=== PATIENT | female | born 1990 | race Caucasian/White ===

== ENCOUNTER 2024-01-22 12:30 | Outpatient (OUT) | payer MEDICARE, MEDICAID, SELFPAY ==
--- NOTE | 2024-01-22 13:37 | ECG_ITS ---
The [facility] Test Date: 2024-01-22 Pat Name: BRY BOWEN Department: Room: - Gender: Female [employer]: : 1990 Requested By: Order Number: [id number] Reading MD: ABDIRAHMAN DINERO Measurements Intervals [place] Rate: 49 P: 5 PA: 127 QRS: 76 QRSD: 94 T: 55 QT: 468 QTc: 424 Interpretive Statements SINUS BRADYCARDIA WITH SINUS ARRHYTHMIA POSSIBLE RIGHT VENTRICULAR CONDUCTION DELAY [RSR (QR) IN V1/V2] No previous ECG available for comparison Electronically Signed On 01-22-2024 23:07:46 EDT by ABDIRAHMAN DINERO
[2024-01-22 14:27] LABS: Hematocrit 38.2 % (36.0-48.0); Hemoglobin 12.4 g/dL (12.0-16.0); Mean Corpuscular HGB Conc 32.5 g/dL (29.9-35.2); Mean Corpuscular Hemoglobin 28.8 pg (26.7-34.0); Mean Corpuscular Volume 88.8 fL (81.0-99.0); Mean Platelet Volume 11.7 fL (9.5-13.5); Platelet Count 274 10^3/uL (150-450); White Blood Count 5.6 10^3/uL (4.0-11.0)
[2024-01-22 14:32] LABS: Anion Gap 11.1; BUN Creatinine Ratio 17.1; Calcium 9.2 mg/dL (8.5-10.1); Chloride 102 mmol/L (98-107); Estimated GFR (African America >60 (>=60); Estimated GFR (Non-African Ame >60 (>=60); Glucose 91 mg/dL (74-106); Potassium 4.1 mmol/L (3.5-5.1); Sodium 139 mmol/L (136-145)
[2024-01-22 14:38] LABS: INR 1.06; Partial Thromboplastin Time 29.3 sec (22.3-36.2); Prothrombin Time 11.2 sec (9.0-11.6)
[2024-01-22 15:41] LABS: Basophils Abs Manual 0.11 10^3/uL (0.00-0.10); Eosinophils Absolute Manual 0.22 10^3/uL (0.00-0.70); Lymphocytes Absolute Manual 2.35 10^3/uL (1.20-3.80); Monocytes Absolute Manual 0.33 10^3/uL (0.30-0.80); Segmented Neut Absolute Manual 2.57 10^3/uL (1.4-6.5)
[2024-01-22 16:04] LABS: Ovalocytes 1+
== END 2024-01-22 12:31 | disposition home or self-care (01) ==
PROVIDERS: PCP Family Medicine; Visit Provider Urology
DX: Z01.812 Encounter for preprocedural laboratory examination (principal); N28.89 Other specified disorders of kidney and ureter; Z87.820 Personal history of traumatic brain injury; G40.909 Epilepsy, unspecified, not intractable, without status epilepticus; G43.909 Migraine, unspecified, not intractable, without status migrainosus
CPT/HCPCS: 36415; 80048; 85007; 85027; 85610; 85730; 93005

== ENCOUNTER 2024-01-22 12:42 | Outpatient (OUT) | payer MEDICARE, MEDICAID, SELFPAY ==
--- NOTE | 2024-01-22 12:46 | XR_ITS ---
The [address] [address] Patient Name: BRY BOWEN MRN: [id number] date: 1990 Sex: F Assigned Patient Location: [place] Current Patient Location: [facility] Accession/Order Number: [id number] Exam Date: 01/22/2024 12:55 Report Date: 01/22/2024 14:25 At the request of: MADHAVI MONTES DE OCA Procedure: XR IVP w KUB EXAMINATION: XR IVP w KUB HISTORY: Ureterocele, Bladder Mass COMPARISON: No relevant comparison available. TECHNIQUE: After obtaining patient consent a preventive medicine officer image was obtained followed by injection of 100cc of Omnipaque 300 IV contrast. Immediate nephrographic images were obtained. Corticomedullary and urographic phase images were obtained at 5, 10, 15 and 20 minutes. 15 minute oblique images were also obtained. FINDINGS: KIDNEY/URETER - RIGHT: No visible calcifications. KIDNEY/URETER - LEFT: No visible calcifications. PELVIS: No visible ureteral calcifications. Any visible calcifications favor phleboliths. NEPHROGRAPHIC PHASE: Normal, symmetric size, contour, and orientation. Normal and symmetric time of contrast uptake. CORTICOMEDULLARY: No mass or dilatation. Mild breast appearance of the renal papilla suggestive of benign renal tubular ectasia UROGRAPHIC PHASE: Normal caliber, course, and number of ureters. BLADDER: Normal size and contour. BOWEL: No abnormal dilation or deviation. BONES: No acute abnormality. OTHER: Right-sided catheter, ventriculoperitoneal shunt favored, the tip terminates in the left lateral pelvis. IVC filter. XR/XR IVP w KUB IMPRESSION: No acute abnormality Electronically authenticated by: KATELYN VEGAS Date: 01/22/2024 14:25
== END 2024-01-22 12:43 | disposition home or self-care (01) ==
PROVIDERS: PCP Family Medicine; Visit Provider Urology
DX: Z01.812 Encounter for preprocedural laboratory examination (principal); Z01.810 Encounter for preprocedural cardiovascular examination; N28.89 Other specified disorders of kidney and ureter; Z87.820 Personal history of traumatic brain injury; G40.909 Epilepsy, unspecified, not intractable, without status epilepticus; G43.909 Migraine, unspecified, not intractable, without status migrainosus; D49.4 Neoplasm of unspecified behavior of bladder
CPT/HCPCS: 36415; 74400; 80048; 85007; 85027; 85610; 85730; 93005; Q9967

== ENCOUNTER 2024-01-24 08:59 | Day surgery (SDC) | payer MEDICARE, MEDICAID, SELFPAY ==
[2024-01-22 14:03] VITALS: BP 106/57; PULSE 50; TEMP 36.4; O2SAT 99; BMI 21.4
[2024-01-24] VITALS (8 sets, daily range): BP systolic 92–114; BP diastolic 64–76; PULSE 49–67; TEMP 36.1; O2SAT 98–100; BMI 22.9
--- NOTE | 2024-01-24 | FL_ITS ---
[address] [address] Patient Name: BRY BOWEN MRN: [id number] date: 1990 Sex: F [facility] Current Patient Location: Accession/Order Number: [id number] Exam Date: 01/24/2024 11:20 Report Date: 01/28/2024 08:21 At the request of: MADHAVI MONTES DE OCA Procedure: FL fluoroscopy <1hr NON-READ EXAM: FL fluoroscopy <1hr NON-READ HISTORY: TECHNIQUE: FINDINGS: Please see Operative Report. Electronically authenticated by: RADIOLOGIST NO Date: 01/28/2024 08:21
--- OUTSIDE RECORDS SUMMARY | 2024-01-24 09:03 | XMS_ITS | CCD ---
Author Organization [facility] Care Team Providers Care Polysilicon Preparation Worker Name Role Phone Joseph Armani Primary Care Provider [phone] JOSEPH ARMANI Referring Unavailable ARMANI RUIZ Primary Care Unavailable Naldo GUERRERO, Denae Redding Primary Care Provider [place]aras WORKER'S 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 CLAIMS EXAMINER, Yanelis R Unavailable [phone] Angel WORKER'S 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 CLAIMS EXAMINER, Gay Unavailable Chely TUBING MACHINE OPERATOR-Gloria VASQUEZ Primary Care Provider [phone] MD Heraclio Porter Attending Provider [phone] MD Denae Hitchcock Primary Care Provider [phone] GAY GANDHI Attending Unavailable HERACLIO PORTER Attending Unavailable GAY GANDHI Referring Unavailable HERACLIO PORTER Referring Unavailable HERACLIO PORTER Attending Unavailable HERACLIO PORTER Referring Unavailable HERACLIO PORTER Attending Unavailable HERACLIO PORTER Referring Unavailable Alon MONTES DE OCA Attending Unavailable DENAE HITCHCOCK Primary Care Physician DILEEP RICHTER Attending Unavailable GLORIA YANEZ Referring Unavailable GLORIA YANEZ Primary Care Unavailable Heraclio Porter Attending Unavailable Heraclio Porter Admitting Unavailable Denae Hitchcock Primary Care Unavailable Medications Current Medications Medication Drug Class(es) Dates Sig (Normalized) Sig (Original) ibuprofen 800 mg oral tablet (2 sources) Nonsteroidal Anti-inflammatory Drug Start: 11-09-2023 take 800 mg by mouth every eight hours Ibuprofen Active 800 MG PO Every 8 hours November 09, 2023 12:00am ibuprofen 200 mg capsule PRN for 30 days 0 Active levETIRAcetam 500 mg oral tablet (7 sources) Start: 01-17-2023 End: 01-12-2024 take 1 mg by mouth twice daily Keppra 500 mg Tab mg tab(s), Oral, BID, Refills(s) 0 Start Date: 12/19/23 Status: Ordered take 1 tablet by mouth twice elizabeth ly levetiracetam (KEPPRA) 1000 MG tablet Take 1,000 mg by mouth 2 times daily. 0 Active cavmohot-jqsi-UB-calcium &mins (THERAGRAN-M) 9 mg iron-400 mcg tablet (1 source) owyhxsdf-pssk-PO -calcium &mins (THERAGRAN-M) 9 mg iron-400 mcg tablet Take 1 tablet by mouth in the morning. 0 Active nitrofurantoin, macrocrystals 25 mg / nitrofurantoin, monohydrate 75 mg oral capsule (1 source) Nitrofuran Antibacterial Sta rt: 4 End : 4 take 1 capsule by mouth once daily Macrobid 100 mg Cap 100 mg = 1 cap(s), Oral, Daily, X 60 day(s), # 60 cap(s), Refills(s) 0, Pharmacy: [facility] #[id number], 170, cm, 12/19/23 10:38:00 EDT, Height/Length Dosing, 67.5, kg, 12/19/23 10:38:00 EDT, Weight Dosing Start Date: 01/01/24 Stop Date: 03/01/24 Status: Ordered omega 7-gkr-tgf-fish oil (Fish OiL) 300-1,000 mg capsule (1 source) omega 3-dha-epa- fish oil (Fish OiL) 300-1,000 mg capsule 1 capsule. 0 Active Completed/Discontinued Medications Medication Drug Class(es) Dates Sig (Normalized) Sig (Original) ciprofloxacin 500 mg oral tablet (1 source) Quinolone Antimicrobial Start: 12-21-2023 take 1 tablet by mouth once daily Cipro 500 mg Tab 500 mg = 1 tab(s), Oral, Daily, Take 1 tablet the day before the procedure and 1 tablet after the procedure, # 2 tab(s), Refills(s) 0, Pharmacy: [facility] #[id number], 170, cm, 12/19/23 10:38:00 EDT, Height/Length Dosing, 67.5, kg, 12/19/23 10:38:00 EDT, Weight Dosing Start Date: 12/21/23 Status: Ordered Problems Active Problems Problem Classification Problem Date Documented Date Episodic/Chronic Epilepsy; convulsions (5 sources) Partial epilepsy with impairment of consciousness; Translations: [Localization-related (focal) (partial) symptomatic epilepsy and epileptic syndromes with complex partial seizures, not intractable, without status epilepticus] Onset: 1 07-31-2023 Chronic Epilepsy; convulsions (6 sources) Neurological finding; Translations: [Unspecified convulsions] Onset: 3 07-31-2023 Episodic Headache; including migraine (4 sources) Migraine without aura, not refractory ; Translations: [Migraine without aura, not intractable, without status migrainosus] Onset: 3 07-31-2023 Chronic Headache; including migraine (3 sources) Posttraumatic headache; Translations: [Post-traumatic headache, unspecified, not intractable] Onset: 4 07-31-2023 Episodic Intracranial injury (5 sources) History of traumatic brain injury; Translations: [Personal history of traumatic brain injury] Onset: 1 12-22-2020 Episodic Menstrual disorders (5 sources) Disorder of menstruation; Translations: [Irregular menstruation, unspecified] Onset: 4 07-31-2023 Chronic Other endocrine disorders (2 sources) Disorder of endocrine system 12-13-2023 Episodic Other endocrine disorders (2 sources) Endocrine finding 12-13-2023 Episodic Other nervous system disorders (1 source) Device in situ; Translations: [Presence of cerebrospinal fluid drainage device] Onset: 4 07-31-2023 Chronic Other nervous system disorders (1 source) Ventriculoperitoneal shunt in situ; Translations: [Presence of cerebrospinal fluid drainage device] Onset: 4 07-31-2023 Chronic Other screening for suspected conditions (not mental disorders or infectious disease) (2 sources) Endometrium thickened 12-13-2023 Chronic Other screening for suspected conditions (not mental disorders or infectious disease) (3 sources) Patient encounter status; Translations: [Encounter for screening for lipoid disorders] Onset: 4 Episodic Residual codes; unclassified (4 sources) Memory impairment; Translations: [Other amnesia] Onset: 1 12-22-2020 Episodic Residual codes; unclassified (2 sources) Device in situ 12-13-2023 Episodic Residual codes; unclassified (2 sources) Ventriculoperitoneal shunt in situ 12-13-2023 Episodic Past or Other Problems Problem Classification Problem Date Documented Da te Episodic/Chronic Mood disorders (1 source) Mood disorders Onset: 05-09-2022 05-09-2022 Results Test Name Value Interpretation Reference Range Facility HCG ( test) Amador d Ql (U)Ordered By: Derek Quinn on 11-09-2023 HCG ( test) Ql (U) Negative [facility] HCG,Urineon 11-09-2023 Beta HCG ( test) Ql (U) Negative Normal [facility] Comment on above: Result Comment: PERF ORMED BY: [place] [address] PATHOLOGIST AMBULATORY CARE COORDINATOR JOSE WALDROP M.D. Performed By: #### U HCG #### [place] [address] [place] Fidencio 11-09-2023 L Specimen: [id number] Received: 11/09/23 Status: BRENNAN Hernandez Num: [id number] Spec Type: Surgical Subm Dr: Heraclio Porter MD-[facility] Tissues: A Endometrium - Curettings (EMC) Procedures: HE/2, Gross/Micro L4 Age/ Patient Sex Location Account Attending Physician Bry Cummings 33/F [place] [id number] Heraclio Porter MD-[facility] SPEC NUM: [id number] RECD: 11/09/23 STATUS: BRENNAN HERNANDEZ NUM: [id number] VERNON: 11/09/23- SUBM DR: Heraclio Porter MD-[facility] ENTERED: 11/09/23 [facility] DR: SPEC TYPE: Surgical DEPT: S ORDERED: HE/2, Gross/Micro L4 ORDERED: HE/2, Gross/Micro L4 Pathological Diagnosis Endometrial curettings: -Slightly unevenly developed secretory endometrium of the at least early phase type, but still with occasional rare mitosis identified in at least 4 glands per underlying persistent desynchronized proliferative activity, and the dysfunctional type uterine bleeding, otherwise without obvious hyperplasia or atypia observed -Incidentally sampled myometrial portion in 2 strips with few admixed thickened walled vessels, suggesting possibly sampled angioleiomyoma versus focal angiodysplasia not unusually also might be observed in any given reproductive age patient with larger uterus of note Gross Description Received in formalin, labeled with the patient's name, date of and endometrial curettings are multiple fragments of hawkins-pink tissue and clotted blood on a Telfa pad measuring in aggregate 2.5 x 2.0 x 0.3 cm, entirely submitted in A1. Clinical history: Menorrhagia, thickened endometrium Specimen: [id number] Received: 11/09/23 Status: BRENNAN Hernandez Num: [id number] Spec Type: Surgical Subm Dr: Heraclio Porter MD-[facility] Tissues: A Endometrium - Curettings (EMC) Procedures: HE/2, Gross/Micro L4 Patient: Bry Cummings [id number] (Continued) Specimen: [id number] Received: 11/09/23 (Continued) Signed (signatur e on file) Marylin Wladron MD 11/12/23 2034 Specimen: [id number] Received: 11/09/23 Status: BRENNAN Hernandez Num: [id number] Spec Type: Surgical Subm Dr: Heraclio Porter MD-CASEY Tissues: A Endometrium - Curettings (EMC) Procedures: HE/2, Gross/Micro L4 Patient: Bry Cummings [id number] (Continued) Specimen: [id number] Received: 11/09/23 (Continued) CPT Codes 83150 Specimen: [id number] Received: 11/09/23 Status: BRENNAN Hernandez Num: [id number] Spec Type: Surgical Subm Dr: Heraclio Porter MD-[facility] Tissues: A Endometrium - Curettings (EMC) Procedures: HE/2, Gross/Micro L4 Patient: Bry Cummings [id number] (Continued) Signed (signatur e on file) Marylin Waldron MD 11/12/232033 Normal [facility] US RENAL COMPLETEon 10-18-19 US RENAL COMPLETE FINDINGS: Right kidney 11.9 x 5.3 x 4.3 cm Left kidney 12.0 x 4.4 x 6.2 cm Pre-void bladder 278 cc Post void bladder 21 Right kidney and collecting system: Normal. Left kidney and collecting system: Normal cortical volume. 1.5 x 2.7 cm mid pole exophytic cyst. No echogenic stone formation or evidence of obstruction. No bladder stone or focal wall thickening. 1.0 x 1.5 cm septation (cystic appearance) posterior bladder wall near the base. IMPRESSION: 1. No significant stone formation or evidence of urinary tract obstruction 2. Bladder findings, likely benign etiology. TRANSCRIBED BY: ELECTRONICALLY SIGNED BY: John Aburto MD Normal Not Available HCG ( test) Ql (U)o n 07-31-2023 Interpretation and review of laboratory results Normal [facility] Preg Test, Ur Negative [facility] Comp Metabolic Profon 2020 (cont.) Normal [facility] Comment on above: Result Comment: Aver age GFR for 30-39 years old: 107 mL/min/1.73sq m Chronic Kidney Disease: <60 mL/min/1.73sq m Kidney failure: <15 mL/min/1.73sq m eGFR calculated using average adult body mass. Additional eGFR calculator available at: http://www.Meiyou/multiple_crcl_2011.htm Performed By: #### C DP, CP, LIPR, FT4, TSH #### [facility] [address] [place] [address] Dump Grader: Robby Oconnor MD Albumin [Mass/Vol] 4.4 g/dL Normal 3.5-5.2 [facility] Comment on above: Performed By: #### C DP, CP, LIPR, FT4, TSH #### [facility] [address] [place] [address] Dump Grader: Robby Oconnor MD Albumin/Glob Ratio 1.1 Normal 1.0-2.5 [facility] Comment on above: Performed By: #### C DP, CP, LIPR, FT4, TSH #### [facility] [address] [place] [address] Dump Grader: Robby Oconnor MD Alkaline Phos 70 U/L Normal 35-104 [facility] Comment on above: Performed By: #### C DP, CP, LIPR, FT4, TSH #### [address] [address] Dump Grader: Robby Oconnor MD ALT [Catalytic activity/Vol] 10 U/L Normal 5-33 [facility] Comment on above: Performed By: #### C DP, CP, LIPR, FT4, TSH #### [address] [address] Dump Grader: Robby Oconnor MD Anion gap [Moles/Vol] 12 mmol/L Normal 9-17 [facility] Comment on above: Performed By: #### C DP, CP, LIPR, FT4, TSH #### [address] [address] Dump Grader: Robby Oconnor MD AST [Catalytic activity/Vol] 14 U/L Normal <32 [facility] Comment on above: Performed By: #### C DP, CP, LIPR, FT4, TSH #### [address] [address] Dump Grader: Robby Oconnor MD Bilirubin [Mass/Vol] 0.33 mg/dL Normal 0.3-1.[address] [facility] Comment on above: Performed By: #### C DP, CP, LIPR, FT4, TSH #### [address] [address] Dump Grader: Robby Oconnor MD Calcium [Mass/Vol] 9.1 mg/dL Normal 8.6-10.4 [facility] Comment on above: Performed By: #### C DP, CP, LIPR, FT4, TSH #### [address] [address] Dump Grader: Robby Oconnor MD Chloride [Moles/Vol] 103 mmol/L Normal 98-[address] [facility] Comment on above: Performed By: #### C DP, CP, LIPR, FT4, TSH #### [address] [address] Dump Grader: Robby Oconnor MD CO2 [Moles/Vol] 25 mmol/L Normal 20-31 [facility] Comment on above: Performed By: #### C DP, CP, LIPR, FT4, TSH #### [address] [address] Dump Grader: Robby Oconnor MD Creatinine [Mass/Vol] 0.54 mg/dL Normal 0.50-0.90 [facility] Comment on above: Performed By: #### C DP, CP, LIPR, FT4, TSH #### [address] [address] Dump Grader: Robby Oconnor MD GFR, Amer >60 Normal >60 [facility] Comment on above: Performed By: #### C DP, CP, LIPR, FT4, TSH #### [address] [address] Dump Grader: Robby Oconnor MD GFR,non Amer >60 Normal >[address] [facility] Comment on above: Performed By: #### C DP, CP, LIPR, FT4, TSH #### [address] [address] Dump Grader: Robby Oconnor MD Glucose [Mass/Vol] 76 mg/dL Normal 70-99 [facility] Comment on above: Performed By: #### C DP, CP, LIPR, FT4, TSH #### [address] [address] Dump Grader: Robby Oconnor MD Potassium [Moles/Vol] 4.0 mmol/L Normal 3.7-5.3 [facility] Comment on above: Performed By: #### C DP, CP, LIPR, FT4, TSH #### [address] [address] Dump Grader: Robby Oconnor MD Protein [Mass/Vol] 8.5 g/dL High 6.4-8.3 [facility] Comment on above: Performed By: #### C DP, CP, LIPR, FT4, TSH #### [address] [address] Dump Grader: Robby Oconnor MD Sodium [Moles/Vol] 140 mmol/L Normal 135-144 [facility] Comment on above: Performed By: #### C DP, CP, LIPR, FT4, TSH #### [facility] [address] [place] [address] Dump Grader: Robby Oconnor MD Urea nitrogen [Mass/Vol] 15 mg/dL Normal 6-20 [facility] Comment on above: Performed By: #### C DP, CP, LIPR, FT4, TSH #### [facility] [address] [place] [address] Dump Grader: Robby Oconnor MD Lipid Profileon 12-23-2020 Cholesterol [Mass/Vol] 133 mg/dL Normal <[address] [facility] Comment on above: Result Comment: Cholesterol Guidelines: <200 Desirable 200-240 Borderline >240 Undesirable Performed By: #### C DP, CP, LIPR, FT4, TSH #### [address] [address] Dump Grader: Robby Oconnor MD Cholesterol in HDL [Mass/Vol] 52 mg/dL Normal >40 [facility] Comment on above: Result Comment: HDL Guidelines: <40 Undesirable 40-59 Borderline >59 Desirable Performed By: #### C DP, CP, LIPR, FT4, TSH #### [address] [address] Dump Grader: Robby Oconnor MD Cholesterol in LDL [Mass/Vol] 61 mg/dL Normal 0-130 [facility] Comment on above: Result Comment: LDL Guidelines: <100 Desirable 100-129 Near to/above Desirable 130-159 Borderline >159 Undesirable Direct (measured) LDL and calculated LDL are not interchangeable tests. Performed By: #### C DP, CP, LIPR, FT4, TSH #### [address] [address] Dump Grader: Robby Oconnor MD Cholesterol.total/Choles terol in HDL [Mass ratio] 2.6 {ratio} Normal <5 [facility] Comment on above: Performed By: #### C DP, CP, LIPR, FT4, TSH #### [address] [address] Dump Grader: Robby Oconnor MD Triglyceride [Mass/Vol] 102 mg/dL Normal <150 [facility] Comment on above: Result Comment: Triglyceride Guidelines: <150 Desirable 150-199 Borderline 200-499 High >499 Very high Based on AHA Guidelines for fasting triglyceride, March 2012. Performed By: #### C DP, CP, LIPR, FT4, TSH #### [address] [address] Dump Grader: Robby Oconnor MD Thyroid Stim. Horm.on 2020 TSH Qn 4.99 m[IU]/L Normal 0.30-5.00 [facility] Comment on above: Performed By: #### C DP, CP, LIPR, FT4, TSH #### [address] [address] Dump Grader: Robby Oconnor MD Thyroxine, Freeon 12-23-2020 Thyroxine, Free 0.97 ng/dL Normal 0.93-1.70 [facility] Comment on above: Performed By: #### C DP, CP, LIPR, FT4, TSH #### [address] [address] Dump Grader: Robby Oconnor MD CBC With Auto DifferentialOr dered By: Armani Ruiz on 12-22-2020 [employer] Eos # 0.16 [employer] [facility] Work Phone: Absolute Immature Granulocyte <0.03 [facility] Work Phone: Absolute Lymph # 2.82 [employer] [facility] Work Phone: Absolute Stonewall # 0.70 [employer] [facility] Work Phone: Basophils (Bld) [#/Vol] 0.05 10*3/uL [facility] Work Phone: Basophils/100 WBC (Bld) 1 % 0 - 2 % [facility] Phone: Differential Type NOT REPORTED [employer] Phone: Eosinophils/100 WBC (Bld) 3 % 1 - 4 % [employer] Phone: Hematocrit (Bld) [Volume fraction] 41.0 % 36.3 - 47.1 % [employer] Phone: Hemoglobin.gastrointesti nal spec 1 Ql (Stl) 13.1 g/dL 11.9 - 15.1 g/dL [employer] Phone: Immature granulocytes/100 WBC (Bld) 0 % 0 [employer] Phone: Interpretation and review of laboratory results Abnormal [employer] Phone: Lymphocytes/100 WBC (Bld) 51 % High 24 - 43 % [employer] Phone: MCH (RBC) [Entitic mass] 31.1 pg 25. 2 - 33.5 pg [employer] Phone: MCHC (RBC) [Mass/Vol] 32.0 g/dL 28.4 - 34.8 g/dL [employer] Phone: MCV (RBC) [Entitic vol] 97.4 fL 82.6 - 102.9 fL [employer] Phone: Monocytes/100 WBC (Bld) 13 % High 3 - 12 % M [email or web address] Work Phone: NRBC Automated 0.0 0.0 per 100 WBC [employer] Phone: Platelet distribution width (Bld) [Ratio] 13.4 % 11.8 - 14.4 % [employer] Phone: Platelet Estimate NOT REPORTED [employer] Phone: Platelet mean volume (Bld) [Entitic vol] 12.8 fL 8.1 - 13.5 fL [employer] Phone: Platelets (Bld) [#/Vol] 243 10*3/uL [employer] Phone: RBC (Bld) [#/Vol] 4.21 10*6/uL 3.95 - 5.1 1 m/uL [employer] Phone: RBC (Bld) [#/Vol] NOT REPORTED [employer] Phone: Segmented neutrophils/100 WBC (Bld) 32 % Low 36 - 65 % [employer] Phone: Segs Absolute 1.73 [facility] Work Phone: WBC (Bld) [#/Vol] 5.5 10*3/uL [employer] Phone: WBC (Bld) [#/Vol] NOT REPORTED [employer] Phone: [employer] Phone: CBC with Diffon 12-22-2020 Abs. Basophil 0.05 k/uL Normal 0.00-0.20 [facility] Comment on above: Performed By: #### C DP, CP, LIPR, FT4, TSH #### [employer] [facility] [place] [address] Dump Grader: Robby Oconnor MD Abs.Imm.Granulocyte <0.03 Normal 0.00-0.30 [facility] Comment on above: Performed By: #### C DP, CP, LIPR, FT4, TSH #### [place] [address] Dump Grader: Robby Oconnor MD Abs.Neutrophil (Seg) 1.73 k/uL Normal 1.50-8.[address] [facility] Comment on above: Performed By: #### C DP, CP, LIPR, FT4, TSH #### [place] [address] Dump Grader: Robby Oconnor MD Basophils/100 WBC (Bld) 1 % Normal 0-2 [facility] Comment on above: Performed By: #### C DP, CP, LIPR, FT4, TSH #### [place] [address] Dump Grader: Robby Oconnor MD Eosinophils (Bld) [#/Vol] 0.16 10*3/uL Normal 0.00-0.44 [facility] Comment on above: Performed By: #### C DP, CP, LIPR, FT4, TSH #### [address] [address] Dump Grader: Robby Oconnor MD Eosinophils/100 WBC (Bld) 3 % Normal 1-4 [facility] Comment on above: Performed By: #### C DP, CP, LIPR, FT4, TSH #### [place] [address] Dump Grader: Robby Oconnor MD Erythrocyte distribution width (RBC) [Ratio] 13.4 % Normal 11.8-14.4 [facility] Comment on above: Performed By: #### C DP, CP, LIPR, FT4, TSH #### [place] [address] Dump Grader: Robby Oconnor MD Hematocrit (Bld) [Volume fraction] 41.0 % Normal 36.3-47.1 [facility] Comment on above: Performed By: #### C DP, CP, LIPR, FT4, TSH #### [facility] [address] [place] [address] Dump Grader: Robby Oconnor MD Hemoglobin (Bld) [Mass/Vol] 13.1 g/dL Normal 11.9-15.1 [facility] Comment on above: Performed By: #### C DP, CP, LIPR, FT4, TSH #### [facility] [address] [place] [address] Dump Grader: Robby Oconnor MD Immature granulocytes/100 WBC (Bld) 0 % Normal 0 [facility] Comment on above: Performed By: #### C DP, CP, LIPR, FT4, TSH #### [place] [address] Dump Grader: Robby Oconnor MD Lymphocytes (Bld) [#/Vol] 2.82 10*3/uL Normal 1.10-3.70 [facility] Comment on above: Performed By: #### C DP, CP, LIPR, FT4, TSH #### [address] [address] Dump Grader: Robby Oconnor MD Lymphocytes/100 WBC (Bld) 51 % High 24-43 [facility] Comment on above: Performed By: #### C DP, CP, LIPR, FT4, TSH #### [facility] [address] [place] [address] Dump Grader: Robby Oconnor MD MCH (RBC) [Entitic mass] 31.1 pg Normal 25.2-33.5 [facility] Comment on above: Performed By: #### C DP, CP, LIPR, FT4, TSH #### [address] [address] Dump Grader: Robby Oconnor MD MCHC (RBC) [Mass/Vol] 32.0 g/dL Normal 28.4-34.8 [facility] Comment on above: Performed By: #### C DP, CP, LIPR, FT4, TSH #### [address] [address] Dump Grader: Robby Oconnor MD MCV (RBC) [Entitic vol] 97.4 fL Normal 82.6-102.9 [facility] Comment on above: Performed By: #### C DP, CP, LIPR, FT4, TSH #### [place] [address] Dump Grader: Robby Oconnor MD Monocytes (Bld) [#/Vol] 0.70 10*3/uL Normal 0.10-1.20 [facility] Comment on above: Performed By: #### C DP, CP, LIPR, FT4, TSH #### [place] [address] Dump Grader: Robby Oconnor MD Monocytes/100 WBC (Bld) 13 % High 3-12 [facility] Comment on above: Performed By: #### C DP, CP, LIPR, FT4, TSH #### [place] [address] Dump Grader: Robby Oconnor MD Neutrophil (Seg) 32 % Low 36-65 [facility] Comment on above: Performed By: #### C DP, CP, LIPR, FT4, TSH #### [place] [address] Dump Grader: Robby Oconnor MD NRBC Automated 0.0 per 100 WBC Normal 0.0 [facility] Comment on above: Performed By: #### C DP, CP, LIPR, FT4, TSH #### [address] [address] Dump Grader: Robby Oconnor MD Platelet mean volume (Bld) [Entitic vol] 12.8 fL Normal 8.1-13.5 [facility] Comment on above: Performed By: #### C DP, CP, LIPR, FT4, TSH #### [address] [address] Dump Grader: Robby Oconnor MD Platelets (Bld) [#/Vol] 243 10*3/uL Normal 138-453 [facility] Comment on above: Performed By: #### C DP, CP, LIPR, FT4, TSH #### [address] [address] Dump Grader: Robby Oconnor MD RBC (Bld) [#/Vol] 4.21 10*6/uL Normal 3.95-5.11 [facility] Comment on above: Performed By: #### C DP, CP, LIPR, FT4, TSH #### [address] [address] Dump Grader: Robby Oconnor MD WBC (Bld) [#/Vol] 5.5 10*3/uL Normal 3.5-11.3 [facility] Comment on above: Performed By: #### C DP, CP, LIPR, FT4, TSH #### [address] [address] Dump Grader: Robby Oconnor MD Auto Diff Performed NOT REPORTED Normal [facility] Comment on above: Performed By: #### C DP, CP, LIPR, FT4, TSH #### [address] [address] Dump Grader: Robby Oconnor MD Platelet Estimate NOT REPORTED Normal [facility] Comment on above: Performed By: #### C DP, CP, LIPR, FT4, TSH #### [address] [address] Dump Grader: Robby Oconnor MD RBC morphology finding Nom (Bld) NOT REPORTED Normal [facility] Comment on above: Performed By: #### C DP, CP, LIPR, FT4, TSH #### [address] [address] Dump Grader: Robby Oconnor MD WBC Morphology NOT REPORTED Normal [facility] Comment on above: Performed By: #### C DP, CP, LIPR, FT4, TSH #### [address] [address] Dump Grader: Robby Oconnor MD Comp Metabolic Profon 2020 BUN/CRE Ratio NOT REPORTED Normal 03-14 [facility] Comment on above: Performed By: #### C DP, CP, LIPR, FT4, TSH #### [facility] [address] [place] [address] Dump Grader: Robby Oconnor MD Staging: NOT REPORTED Normal [facility] Comment on above: Performed By: #### C DP, CP, LIPR, FT4, TSH #### [address] [address] Dump Grader: Robby Oconnor MD Comprehensive Metabolic Pane lOrdered By: Armani Ruiz on 12-22-2020 Albumin [Mass/Vol] 4.4 g/dL 3.5 - 5.2 g/dL [facility] [employer] Work Phone: Albumin/Globulin [Mass ratio] 1.1 {ratio} [facility] [email or web address] Phone: ALP (Bld) [Catalytic activity/Vol] 70 U/L 35 - 104 U/L [facility] [employer] Work Phone: ALT [Catalytic activity/Vol] 10 U/L 5 - 33 U/L [employer] Phone: Anion gap [Moles/Vol] 12 mmol/L 9 - 17 mmol/L [employer] Phone: AST [Catalytic activity/Vol] 14 U/L <32 [employer] Phone: Bilirubin [Mass/Vol] 0.33 mg/dL 0.3 - 1 .2 mg/dL [employer] Phone: Calcium [Mass/Vol] 9.1 mg/dL 8.6 - 10. 4 mg/dL [employer] Phone: Chloride [Moles/Vol] 103 mmol/L 98 - 10 7 mmol/L [employer] Phone: CO2 [Moles/Vol] 25 mmol/L 20 - 31 mmol/L [employer] Phone: Creatinine [Mass/Vol] 0.54 mg/dL 0.50 - 0.90 mg/dL [employer] Phone: Free PSA/Total PSA [Mass fraction] 8.5 g/dL High 6.4 - 8.3 g/dL [employer] Phone: GFR >60 >60 mL/min [place] Phone: GFR Non- >60 >60 mL/min [employer] Phone: GFR/1.73 sq M.predicted MDRD (S/P/Bld) [Vol rate/Area] [employer] Phone: Comment on above: Average GFR for 30-3 9 years old: 107 mL/min/1.73sq m Chronic Kidney Disease: <60 mL/min/1.73sq m Kidney failure: <15 mL/min/1.73sq m eGFR calculated using average adult body mass. Additional eGFR calculator available at: http://www.[employer]/multiple_crcl_2012.htm GFR/1.73 sq M.predicted MDRD (S/P/Bld) [Vol rate/Area] NOT REPORTED [facility]: Glucose [Mass/Vol] 76 mg/dL 70 - 99 mg/dL [facility] [email or web address] Phone: Interpretation and review of laboratory results Abnormal [facility] Phone: Potassium [Moles/Vol] 4.0 mmol/L 3.7 - 5.3 mmol/L [facility] [email or web address] Phone: Sodium [Moles/Vol] 140 mmol/L 135 - 144 mmol/L [facility] Phone: Urea nitrogen (BldV) [Mass/Vol] 15 mg/dL 6 - 20 mg/dL [facility] Phone: Urea nitrogen/Creatinine (Bld) [Mass ratio] NOT REPORTED [facility] Phone: Lipid PanelOrdered By: Armani Ruiz on 12-22-2020 Cholesterol [Mass/Vol] 133 mg/dL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 normal. Breath sounds: Normal breath sounds. Abdominal: General: Bowel sounds are normal. Palpations: Abdomen is soft. Musculoskeletal: General: Normal range of motion. Cervical back: Normal range of motion. Skin: General: Skin is warm and dry. Capillary Refill: Capillary refill takes less than 2 seconds. Neurological: General: No focal deficit present. Mental Status: She is alert and oriented to person, place, and time. Psychiatric: Mood and Affect: Mood normal. ASSESSMENT/PLAN Diagnoses and all orders for this visit: Adult general medical examination Menstrual abnormality - POCT , urine Metrorrhagia - Ambulatory referral to Gynecology; Future FOLLOW-UP Follow up in about 1 year (around 07/31/2024) for Next scheduled follow-up: [place] . documented in this encounterChristian [id number] Instructions* Patient Instructions* Gay Gandhi NP - 07/31/2023 3:00 PM EST PATIENT EDUCATION: Adult wellness Wellness performed at office visit today. Height, weight, BMI, problem list, and immunizations records reviewed. Encourage annual vision screenings and semi- annual dental care. Encourage to eat a diet that is rich in plant-based foods and lean protein. Encourage regular periods of exercise. Limit or eliminate junk food and sources of excess calories. Encourage to maintain open communication with provider regarding any changes in condition. Encourage 150 minutes of exercise weekly or amount appropriate to current level of function. Identify family/friend/social support and maintaining emotional connections. Follow-up as discussed. Patient verbalized importance of keeping open communication with health care providers. [facility] + Plan note No data available for this section [facility] Evaluation note* Diagnosis Encounter for well adult exam with abnormal findings Screening cholesterol level Screening for lipoid disorders Thyroid disorder screening Screening for thyroid disorder documented in this encounter [facility] Work Phone: evaluation note* Diagnosis Adult general medical examination- Primary Unspecified general medical examination Menstrual abnormality Metrorrhagia documented in this encounter [facility] HealthcareEvaluation noteNo assessment information availableFayette County Memorial Hospital Work Phone: InstructionsNot on filedocumented in this encounter [facility] No data available for this section [facility] Reason for referral (narrative)* Consultation (Routine) - Pending Review Specialty Diagnoses / Procedures Referred By Marie lynn Referred To Contact Gynecology Diagnoses Metrorrhagia Procedures MA OFFICE/OUTPATIENT NEW HIGH MDM 60 MINUTES Gay Gandhi NP [address] [place] [address] Referral ID Status Reason Start Date Expiration Date Visits Requested Visits Authorized [id number] Pending Review Specialty Services Required 08/02/2023 01/29/2024 1 1 [facility] Advance Directives No Advanced Directives Records FoundDocuments on File Type Date Recorded Patient Enrichment Specialist Expl anation Advance Directives and Living Will Power of Neurodiagnostic Technician Documents on File Type Date Recorded Patient Enrichment Specialist Expl anation ACP-Advance Directive ACP-Power of Neurodiagnostic Technician Summary Purpose Family History No Family History Records Found Relationship Condition Age at Onset Recorded Date/T jocelin Not Specified No pertinent family history Unknown Chief Complaint and Reason for Visit Chief Complaint Menorrhagia, Thicken ed Endometrium Additional Source Comments INFORMATION SOURCE (unrecogn ized section and content) DATE CREATED AUTHOR 12/24/2020 [facility] DATE CREATED AUTHOR AUTHOR'S ORGANIZ ATION 11/28/2023 [facility] EPIC DATE CREATED AUTHOR AUTHOR'S ORGANIZ ATION 12/17/2023 [place] DATE CREATED AUTHOR AUTHOR'S ORGANIZ ATION 12/26/2023 [facility] DATE CREATED AUTHOR AUTHOR'S ORGANIZ ATION 01/23/2024 [facility] Care Teams (unrecognized sec tion and content) [employer] Preparation Worker Relationship Specialty Start Date End Date Denae Hitchcock MD [address] [place] [address] PCP - General Family Medicine 07/11/23 Yanelis Ty WORKER'S 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 CLAIMS EXAMINER [address] [place] [address] Nurse Practitioner Pulmonary Disease 07/11/23 Gay Gandhi NP [address] [place] [address] Nurse Practitioner Family Medicine 07/11/23 [employer] Preparation Worker Relationship Specialty Start Date End Date Gloria Yanez APRN-PEDRO [address] [place] [address] [address] [place] [id number] PCP - General 01/22/23 Team Status: Active Member Role Status Dates Denae Hitchcock MD Primary Care Provider Active Team Status: Inactive Member Role Status Dates Heraclio Porter MD Attending Provider Active St art: November 09, 2023 End: November 09, 2023 Denae Hitchcock MD Primary Care Provider Active S tart: November 09, 2023 End: November 09, 2023 Reason for Visit (unrecogniz ed section and content) Reason Onset Date Comments tue appointment 08/29/2023 FOR RECORDS PERTAINING TO PATIENTS WHO ARE OR HAVE BEEN ENROLLED IN A CHEMICAL DEPENDENCY/SUBSTANCEABUSE PROGRAM, SOME INFORMATION MAY BE OMITTED. This clinical summary was aggregated from multiple sources. Caution should be exercised in using it in the provision of clinical care. This summary normalizes information from multiple sources, and as a consequence, information in this document may materially change the coding, format and clinical context of patient data. In addition, data may be omitted in some cases. CLINICAL DECISIONS SHOULD BE BASED ON THE PRIMARY CLINICAL RECORDS. [facility] [employer] [facility]. provides no warranty or guarantee of the accuracy or completeness of information in this document.
[2024-01-24 09:30] LABS: HCG Qualitative NEGATIVE (NEGATIVE); Internal Control Within Normal Limits
[2024-01-24] MEDS: LACTATED RINGER'S SOLUTION 1,000 ML 50 ML IV ×2 (09:41→11:48)
[2024-01-24] MEDS: CEFAZOLIN SODIUM/DEXTROSE,ISO 2 GM/50 ML PIGGYBACK IV (10:55)
--- NOTE | 2024-01-24 11:47 | PM.URSON ---
Urology Surgery Operative Note Operative Note Procedure Date: 01/24/24 Time Out Performed: yes Pre-op Diagnosis: Left ureterocele Post-op Diagnosis: same as pre-op Procedures performed: 1. Cystoscopy. 2. Transurethral incision of large left ureterocele. 3. Left ureteroscopy. 4. 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 Cystoscopy was then done and I identified a large left ureterocele. IVP was entirely negative for stones and duplicated system. She now presents for cystoscopy and transurethral incision of left ureterocele along with ureteroscopy and placement of left stent. She has signed an informed consent after risks were explained. Detailed description of Procedure: The patient was brought to the operating room and placed on the operating room table in the supine position. SCDs were placed on the lower extremities and turned on and functioning during the entire case. Timeout was done by all parties in the room. We all agreed upon the patient's identification and the planned procedures for this patient. Genn. anesthesia was then administered. The patient was then repositioned into the modified dorsal lithotomy position. All pressure points were satisfactorily padded. Genitalia were sterilely prepped and draped in usual fashion. I started by passing a 20 Qatari visual urethrotome with a cold knife straight blade into the bladder. I waited for the ureter to E flux urine. When it did there was a large ballooning effect of the left ureterocele. 1 could see a tiny pinpoint opening. I then passed a Glidewire through the sideport into the bladder and was able to get it into the pinpoint opening of the ureterocele and passed it up to the kidney. I then extended this straight knife and made an incision vertically thus opening up the ureterocele dramatically. There was a immediate E flux of trapped urine into the bladder. The urethrotome was then removed. I then backloaded a flexible ureteroscope over the wire and did the left ureteroscopy up to the kidney. No stones or abnormalities were identified. The ureteroscope was then removed. I then backloaded the cystoscope over the wire and passed it into the bladder. I then slid a 6 Qatari variable length ureteral stent over the wire up to the left kidney. The wire was removed and there were good curls in the kidney and in the bladder. The bladder was drained of its contents and the scope was then removed. She was then transferred [facility] bed and wheeled to PACU in stable condition. She will be discharged to home later today with a prescription for Vesicare 10 mg daily #14.
[2024-01-24] MEDS: SOLIFENACIN SUCCINATE 10 MG TABLET PO (12:15)
== END 2024-01-24 12:43 | disposition home or self-care (01) ==
PROVIDERS: Anesthesiology; PCP Family Medicine; Visit Provider Urology
PROC: (CPT 910; principal; 2024-01-24 10:15)
DX: N28.89 Other specified disorders of kidney and ureter (principal); Z87.820 Personal history of traumatic brain injury; Z98.2 Presence of cerebrospinal fluid drainage device
CPT/HCPCS: 52300; 52332; 52351; 36415; 76000; 84703; J0690; J1100; J1885; J2250; J2405; J2704

== ENCOUNTER 2024-02-06 10:30 | Outpatient (OUT) | payer MEDICARE, MEDICAID, SELFPAY ==
--- OUTSIDE RECORDS SUMMARY | 2024-02-06 10:54 | XMS_ITS | CCD ---
Author Organization [facility] Care Team Providers Care Outpatient Receptionist Name Role Phone JosephAnamaria slaterh Primary Care Provider JOSEPH MALLORY Referring Unavailable MALLORY RUIZ Primary Care Unavailable Naldo GUERRERO, Yassine Redding Primary Care Provider Laparas DIRECTOR CLINICAL OPERATIONS, Yanelis R Unavailable [phone] Hiram DIRECTOR CLINICAL OPERATIONS, Gay Unavailable Chely SHAKER REPAIRER-RIGGING HELPERGloria Primary Care Provider [phone] MD Arleen Porter Attending Provider MD Yassine Hitchcock Primary Care Provider [phone] GAY GANDHI Attending Unavailable CHARLOTTE PENOLA P Attending Unavailable HIRAM GAY Referring Unavailable CHARLOTTE PENOLA P Referring Unavailable CHARLOTTE PENOLA P Attending Unavailable CHARLOTTE PENOLA P Referring Unavailable CHARLOTTE PENOLA P Attending Unavailable ARLEEN PORTER P Referring Unavailable YASSINE HITCHCOCK Primary Care Physician [phone] DILEEP RICHTER Attending Unavailable GLORIA YANEZ Referring Unavailable GLORIA YANEZ Primary Care Unavailable Arleen Porter Attending Unavailable Barry Porterola P Admitting Unavailable Yassine Hitchcock Primary Care Unavailable Alon KRAMER Attending Unavailable Alon KRAMER Referring Unavailable Alon KRAMER Admitting Unavailable Alon KRAMER Attending Unavailable Alon KRAMER Attending Unavailable Alon KRAMER Attending Unavailable Allergies Allergy Classification Reported Allergen(s) Allergy Type Date of Onset Reaction(s) Facility (1 source) No Known Medication Allergies; Translations: [No Known Medication Allergies] Propensity to adverse reactions (disorder) [facility] Repository Medications Current Medications Medication Drug Class(es) Dates [...] by mouth 2 times daily. 0 Active ztpkytdx-omlf-CK-calcium &mins (THERAGRAN-M) 9 mg iron-400 mcg tablet (1 source) vpjgoffx-xipz-ZD -calcium &mins (THERAGRAN-M) 9 mg iron-400 mcg tablet Take 1 tablet by mouth in the morning. 0 Active nitrofurantoin, macrocrystals 25 mg / nitrofurantoin, monohydrate 75 mg oral capsule (1 source) Nitrofuran Antibacterial Sta rt: 4 End : take 1 capsule by mouth once daily Macrobid 100 mg Cap 100 mg = 1 cap(s), Oral, Daily, X 60 day(s), # 60 cap(s), Refills(s) 0, Pharmacy: [facility] #[id number], 170, cm, 12/19/23 10:38:00 EDT, Height/Length Dosing, 67.5, kg, 12/19/23 10:38:00 EDT, Weight Dosing Start Date: 01/01/24 Stop Date: 03/01/24 Status: Ordered omega 4-yck-qml-fish oil (Fish OiL) 300-1,000 mg capsule (1 [...] procedure, # 2 tab(s), Refills(s) 0, Pharmacy: [facility] #[id number], 170, cm, 12/19/23 10:38:00 EDT, Height/Length Dosing, [...] Test Name Value Interpretation Reference Range Facility Main OR Intraoperative Recor don 01-01-2024 Main OR Intraoperative Record Main OR Intraoperative Record IntraOp Document Type FTURO Summary Primary Physician: Alon KRAMER MD Finalized Date/Time: 01/01/24 11:22:45 Pt. Name: BRY CUMMINGS/Sex: 1990 Female Med Rec #: [id number] Physician: Alon KRAMER MD Financial #: [id number] Pt. Type: O Room/Bed: / Admit/Disch: 01/01/24 09:52:44 - Institution: Case Times FTURO Entry 1 Patient Times In Room 01/01/24 11:07:00 Out Room 01/01/24 11:21:00 Procedure Times Start 01/01/24 11:10:00 Stop 01/01/24 11:16:00 Anesthesia Times Last Modified By: Shweta AGGARWAL, Erin García 01/01/24 11:16:56 Case Attendance FTURO Entry 1 Entry 2 Entry 3 Case Attendee TAVON GUERRERO, Alon Rock RN, Lisa Monroy Role Performed Surgeon - Primary Air Crew Supervisor - Primary Scrub - Primary Time In 01/01/24 11:07:00 01/01/24 11:07:00 01/01/24 11:07:00 Time Out 01/01/24 11:21:00 01/01/24 11:21:00 01/01/24 11:21:00 Procedure CYSTOSCOPY LOCAL(.) CYSTOSCOPY LOCAL(.) CYSTOSCOPY LOCAL(.) Comments Last Modified By: Shweta AGGARWAL, Erin Rock RN, Erin Rock RN, Erin García 01/01/24 Fatou García 01/01/24 Fatou García 01/01/24 11:16:58 11:16:58 11:16:58 Surgical Procedures FTURO Entry 1 Procedure Description Procedure CYSTOSCOPY LOCAL Modifiers . Surgeon Description CYSTOSCOPY Primary Procedure Yes Primary Surgeon Alon KRAMER MD Start 01/01/24 11:10:00 Stop 01/01/24 11:16:00 Anesthesia Type Local Surgical Service Urology Wound Class 2 - Clean-Contaminated Last Modified By: Erin Rock RN 01/01/24 11:16:57 General Case Data FTURO Pre-Care Text: Classifies surgical wound, implements aseptic technique, initiates traffic control Entry 1 Case Information OR URO 1 FT Case Level None Wound Class 2 - Clean-Contaminated Specialty Urology Preop Diagnosis BLADDER CYST, ABNORMAL Postop Same As Preop Yes RENAL US Postop Diagnosis BLADDER CYST, ABNORMAL Outcomes Met? Yes RENAL US Last Modified By: Shweta AGGARWAL, Erin García 01/01/24 11:09:01 Post-Care Text: The patient is free from signs and symptoms of infection EU IntraOp - FTURO Pre-Care Text: Implements protective measures prior to operative or invasive procedure, confirms identity before the operative or invasive procedure, verifies operative procedure, surgical site, and laterality Entry 1 EU Perioperative Protocols Procedure(s) CYSTOSCOPY LOCAL(.) Patient Identity Birthday, ID Band Verified (select at Check, Patient least 2): Participation Consents / H and P HandP, Surgery/Procedure Operative Site N/A Verified Consent Marking Verified Surgical Site Yes Laterality Verified n/a Verified Procedure Verified Yes Correct Patient Yes Position Verified Availability Equipment, Medication Time Out Alon KRAMER MD, Verified (If Participants Shweta AGGARWAL, Erin Applicable) Arun Manzo Laura C Time Out Complete 01/01/24 11:09:00 Allergies Reviewed? Yes Allergies Reviewed Self/Patient With Body Position Frog Legged Prep Area PERINEAL AREA Prep Agents Betadine Solution Skin. Condition Unable to Visualize Description CLOTHED Additional None Specimens Collected Vitals - EU Blood Pressure 114/76 Pulse 60 bpm Respirations 12 br/min SPO2 96 % IandO - EU Outcomes Met? Yes Last Modified By: Erin Rock RN 01/01/24 11:10:12 Post-Care Text: The patient is free from signs and symptoms of injury caused by extraneous objects Sign Out FTURO Entry 1 Before Patient Leaves OR Nurse verbally Yes Nurse verbally Yes confirms with the confirms with the team the name of team that the procedure(s) instrument, sponge, recorded and needle counts are correct (or N/A) Nurse verbally n/a Nurse verbally Yes confirms with the confirms with the team how the team whether there specimen is labeled are any equipment (including patient problems to be name), if applicable addressed Sign Out Complete 01/01/24 11:17:00 Last Modified By: Erin Rock RN 01/01/24 11:16:49 Case Comments Finalized By: Erin Rock RN Document Signatures Signed By: Erin Rock RN 01/01/24 11:22 Normal [facility] Main OR Preoperative Recordo n 01-01-2024 Main OR Preoperative Record Main OR Preoperative Record Holding Area Document Type FTURO Summary Primary Physician: Alon KRAMER MD Finalized Date/Time: 01/01/24 10:21:47 Pt. Name: BRY CUMMINGS/Sex: 1990 Female Med Rec #: [id number] Physician: Alon KRAMER MD Financial #: [id number] Pt. Type: O Room/Bed: / Admit/Disch: 01/01/24 09:52:44 - Institution: Case Times Holding FTURO Pre-Care Text: Verifies consent for planned procedure, identifies individual values and wishes concerning care, includes family members in perioperative teaching Secures patient's records' belongings, and valuables, maintains patient's dignity and privacy, and maintains patient confidentiality Entry 1 In Holding 01/01/24 10:13:00 Outcomes Met? Yes Last Modified By: Lola AGGARWAL, Paige ALLEN 01/01/24 10:13:11 Post-Care Text: The patient participates in decisions affecting his or her perioperative plan of care The patient's right to privacy is maintained Surgery Checklist FTURO Entry 1 Patient Birthday, ID Band Procedure History and Physical, Identification: Check, Patient Verification: Surgical Consent, With Participation Patient NPO after Midnight: n/a Personal Items clothes Comment: Limitations: brain injury Complaints of Pain: No Skin Integrity Unable to Visualize Vitals - EU Blood Pressure Pulse Respirations SPO2 Additional None RN Reviewed Yes Specimens Collected Last Modified By: ALEJANDRO Davila RN, Ruthann 01/01/24 10:19:45 Finalized By: ALEJANDRO Davila RN, Ruthann Document Signatures Signed By: ALEJANDRO Davila RN, Ruthann 01/01/24 10:19 ALEJANDRO Davila RN, Ruthann 01/01/24 10:21 Normal [facility] Operative Reporton Operative Report Operative Report Patient: BRY CUMMINGS Age: 33 years Sex: Female : 1990 Associated Diagnoses: None Author: Alon KRAMER MD Procedure Operative Information Details: Date/ Time: 01/01/2024 11:27:00. Pre-Op Dx: Bladder Mass - D41.4, Frequency - R35.0. Post-Op Dx: Same. Anesthesia Type: Local. Procedure: Local Cystoscopy. Complications: None. Risks/Benefits/Informed Consent: Surgical risks, benefits, details of the procedure have been explained to the patient, Full informed consent has been obtained. Intraoperative Information Prepped: Patient is brought back to the endoscopy suite, Patient is placed in modified dorso/lithotomy position, Patient prepped in the usual fashion with Betadine solution, 2% Xylocaine Jelly is placed per Urethra, After waiting several minutes the Cystoscope is introduced. The Urethra is: Normal. The Bladder is: Abnormal, Left-sided ureterocele. Diffuse cystitis cystica lesions. The ureteral orifices: Show efflux of clear urine. Devices Implanted: None. Removal: Cystoscope is removed, The patient tolerated it well. Postoperative Information Discharge: Patient is discharged home with antibiotic coverage, Follow up arranged. She will start Macrobid 100 mg daily for 2 months. She will get an IVP. We will then get her scheduled for cystoscopy, transurethral incision of left ureterocele, left ureteroscopy and left stent placement under general.. Normal [facility] Comment on above: Result Comment: Elec tronically Signed By: Alon KRAMER MD\.br\Date and Time Signed: 01/01/24 11:28 EDT Ambulatory Visit Summaryon 0 12-19-2023 Ambulatory Visit Summary BRY CUMMINGS :1990 Visit Date:12/19/2023 Ambulatory Visit Instructions Your Diagnosis Abnormal renal ultrasound Your Care Team Attending Physician - Alon KRAMER MD Primary Care Physician - YASSINE HITCHCOCK MD This Is Your Medications List Contact prescribing physician if questions or concerns levetiracetam (Keppra 500 mg Tab) Procedures Performed Brain. Discharge Vitals Temperature (Temporal Artery) 36 ?C Heart Rate (Peripheral) 62 Respiratory Rate 18 Blood Pressure 110/69 Height 170 cm Height 67 in Weight 67.5 kg Weight 148.5 lb BMI 23.36 What to do next You Need to Schedule the Following Appointments Follow Up with TAVON GUERRERO, Alon Haq, URL When: Where: [facility] [address] [place] [address]- Medications What How Much When Instructions Unchanged levetiracetam (Keppra 500 mg Tab) 2 times a day Contact prescribing physician if questions or concerns Allergies No Known Medication Allergies Problems Ongoing - Any problem that you are currently receiving treatment for. 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 Please share your experience with us by completing your survey. We appreciate your feedback and thank you for choosing us for your care. Education Materials Cystoscopy Cystoscopy is a procedure that is [...] Cystoscopy may be recommended if you have: ? Urinary tract infections that keep coming back. ? Blood in the urine (hematuria). ? An inability to control when you urinate (urinary incontinence) or an overactive bladder. ? Unusual cells found in a urine sample. ? A blockage in the urethra, such as a urinary stone. ? Painful urination. ? An abnormality in the bladder found during an intravenous pyelogram (IVP) or CT scan. Cystoscopy may also be done to remove a sample of tissue to be examined under a microscope (biopsy). Tell a health care provider about: ? Any allergies you have. ? All medicines you are taking, including vitamins, herbs, eye drops, creams, and xdnh-gku-haavfjw medicines. ? Any problems you or family members have had with anesthetic medicines. ? Any blood disorders you have. ? Any surgeries you have had. ? Any medical conditions you have. ? Whether you are or may be . What are the risks? Generally, this is a safe procedure. However, problems may occur, including: ? Infection. ? Bleeding. ? Allergic reactions to medicines. ? Damage to other structures or organs. What happens before the procedure? Medicines Ask your health care provider about: ? Changing or stopping your regular medicines. This is especially important if you are taking diabetes medicines or blood thinners. ? Taking medicines such as aspirin and ibuprofen. These medicines can thin your blood. Do not take these medicines unless your health care provider tells you to take them. ? Taking azpl-bor-dziooum medicines, vitamins, herbs, and supplements. Tests You may have an exam or testing, such as: ? X-rays of the bladder, urethra, or kidneys. ? CT scan of the abdomen or pelvis. ? Urine tests to check for signs of infection. General instructions ? Follow instructions from your health care provider about eating or drinking restrictions. ? Ask your health care provider what steps will be taken to help prevent infection. These steps may include: ? Washing skin with a germ-killing soap. ? Taking antibiotic medicine. ? Plan to have a responsible adult take you home from the hospital or clinic. What happens during the procedure? ? You will be given one or more of the following: ? A medicine to help you relax (sedative). ? A medicine to numb the area (local anesthetic). ? The area around the opening of your urethra will be cleaned. ? The cystoscope will be passed through your urethra into your bladder. ? Germ-free (sterile) fluid will flow th (more content not included)... Normal [facility] Ambulatory Visit Summary BRY CUMMINGS :1990 Visit Date:12/19/2023 Ambulatory Visit Instructions Your Diagnosis Abnormal renal ultrasound Your Care Team Attending Physician - Alon KRAMER MD Primary Care Physician - YASSINE HITCHCOCK MD This Is Your Medications List Contact prescribing physician if questions or concerns levetiracetam (Keppra 500 mg Tab) Procedures Performed Brain. Discharge Vitals Temperature (Temporal Artery) 36 ?C Heart Rate (Peripheral) 62 Respiratory Rate 18 Blood Pressure 110/69 Height 170 cm Height 67 in Weight 67.5 kg Weight 148.5 lb BMI 23.36 What to do next You Need to Schedule the Following Appointments Follow Up with TAVON GUERRERO, Alon Haq, LAILA When: Where: [facility] [address] , [place] [address]- Medications What How Much When Instructions Unchanged levetiracetam (Keppra 500 mg Tab) 2 times a day Contact prescribing physician if questions or concerns Allergies No Known Medication Allergies Problems Ongoing - Any problem that you are currently receiving treatment for. 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 Please share your experience with us by completing your survey. We appreciate your feedback and thank you for choosing us for your care. Education Materials Cystoscopy Cystoscopy is a procedure that is [...] Cystoscopy may be recommended if you have: ? Urinary tract infections that keep coming back. ? Blood in the urine (hematuria). ? An inability to control when you urinate (urinary incontinence) or an overactive bladder. ? Unusual cells found in a urine sample. ? A blockage in the urethra, such as a urinary stone. ? Painful urination. ? An abnormality in the bladder found during an intravenous pyelogram (IVP) or CT scan. Cystoscopy may also be done to remove a sample of tissue to be examined under a microscope (biopsy). Tell a health care provider about: ? Any allergies you have. ? All medicines you are taking, including vitamins, herbs, eye drops, creams, and edgq-cda-thqvdgu medicines. ? Any problems you or family members have had with anesthetic medicines. ? Any blood disorders you have. ? Any surgeries you have had. ? Any medical conditions you have. ? Whether you are or may be . What are the risks? Generally, this is a safe procedure. However, problems may occur, including: ? Infection. ? Bleeding. ? Allergic reactions to medicines. ? Damage to other structures or organs. What happens before the procedure? Medicines Ask your health care provider about: ? Changing or stopping your regular medicines. This is especially important if you are taking diabetes medicines or blood thinners. ? Taking medicines such as aspirin and ibuprofen. These medicines can thin your blood. Do not take these medicines unless your health care provider tells you to take them. ? Taking scqs-igl-xggncnc medicines, vitamins, herbs, and supplements. Tests You may have an exam or testing, such as: ? X-rays of the bladder, urethra, or kidneys. ? CT scan of the abdomen or pelvis. ? Urine tests to check for signs of infection. General instructions ? Follow instructions from your health care provider about eating or drinking restrictions. ? Ask your health care provider what steps will be taken to help prevent infection. These steps may include: ? Washing skin with a germ-killing soap. ? Taking antibiotic medicine. ? Plan to have a responsible adult take you home from the hospital or clinic. What happens during the procedure? ? You will be given one or more of the following: ? A medicine to help you relax (sedative). ? A medicine to numb the area (local anesthetic). ? The area around the opening of your urethra will be cleaned. ? The cystoscope will be passed through your urethra into your bladder. ? Germ-free (sterile) fluid will flow th (more content not included)... Normal [facility] Urology Office/Clinic Noteon 12-19-2023 Urology Office/Clinic Note Chief Complaint Pt referred due to abnormal Renal US HPI Staff New pt referred by Dr. Arleen Porter for abnormal HOMERO. Never seen in our office before (verified on DA). 01/17/23 - BUN 11. Cr 0.61. GFR >90. 10/03/23 - DHEA sulfate 276 H. TSH 4.91 H. 10/10/23 - T3 free 2.9. T4 free 1.1. Pelvic US done 10/15/23 at [facility]. HOMERO done 10/18/23 at [facility] (ordered due to hormone imbalance) - bladder findings, likely benign etiology. S/p D&C hysteroscopy 11/09/23. Dysuria: denies pain and burning Incomplete bladder emptying: denies Hematuria: denies visible blood Frequency: denies Urgency: denies Nocturia: denies Stream: denies hesitancy Leaking: denies Post void dripping: denies Wearing pads/ Depends: denies Urge incontinence: denies Stress incontinence: denies Incontinence without Sensory Awareness: denies Abdominal pain: denies Flank pain: denies Sexual complaints: _ History of Present Illness Tests reviewed: reviewed UA, referral records, USs I have reviewed the previous health record information and history for this patient from Dr. Arleen Porter. I have reviewed and verified the staff HPI to be accurate for this encounter. There have been no associated fever, chills, flank pain, or blood in the urine. Denies any urinary infections since last encounter. Review of Systems PHQ Score Initial Depression Screen Score: 0 SCORE ROS - Provider Constitutional: denies weight loss, denies hot flashes. Eyes: denies eye problems. Gastrointestinal: denies nausea, denies vomiting. Cardiovascular: denies chest pain or angina. Integumentary: no dryness Musculoskeletal: denies musculoskeletal symptoms. ENMT: denies otolaryngeal symptoms. Respiratory: no shortness of breath. Heme/Lymph: denies easy bleeding tendency, denies easy bruising tendency. Psychiatric: no confusion, no anxiety. Genitourinary: See HPI. Physical Exam Vitals & Measurements T: 36 ?C(Temporal Artery) HR: 62(Peripheral) RR: 18 BP: 110/69 HT: 67 in HT: 170 cm WT: 67.5 kg WT: 148.5 lb BMI: 23.36 General Appearance: alert , no acute distress, well nourished, well developed female. Head: normocephalic . Eyes: normal orbit and globe. ENMT: normal examination of external ears. Chest: Lungs CTA, respirations non labored . Cardiovascular: regular rate and rhythm. Abdomen: soft , non distended, no tenderness, no mass or organomegaly, no hernia. Genitourinary: bladder nonpalpable, no flank tenderness. Lymph Nodes: unremarkable palpation of the cervical area. Skin: warm, dry, no bruising. Psychiatric: cooperative, affect appropriate for age, normal judgement, euthymic mood. Assessment/Plan Bry is a 33 yo female new pt referred by Dr. Arleen Porter due to abnormal HOMERO. Pt is accompanied by an adult female today. Pt does have a hx of traumatic brain injury. Merchandise Adjustment Clerk helped with history. 1. Abnormal renal ultrasound (R93.429: Abnormal radiologic findings on diagnostic imaging of unspecified kidney) Pelvic US 10/15/23 [facility] - Bladder cyst not mentioned. HOMERO 10/18/23 [facility] (ordered due to hormone imbalance) - 1.0 x 1.5 cm septation (cystic appearance) posterior bladder wall near the base. 1.5 x 2.7 cm LMP renal cyst (does not require f/u). UA shows large blood, neg for infection. Pt is currently menstruating. Has had vaginal spotting outside of regular cycle which she has been seeing Dr. Porter for. Reviewed imaging with pt. Discussed cysto to eval bladder cyst. Voids comfortably. No hx of UTI. No abdominal pain. Will schedule cysto. The risks and benefits for cystoscopy have been discussed. The risks include bleeding, infection, and irritation of the bladder and urinary channel, among others. The patient, after being informed of procedural details and after questions have been answered, wishes to proceed. Full informed consent has been obtained. Will order Local anesthesia. Prophylactic abx sent to [facility]. Follow-up With When Contact Information TAVON GUERRERO, Alon Haq, URL [facility] [address] , [place] [address]- Additional Instructions: schedule cysto Patient Education Cystoscopy ISuellen, personally scribed for Dr. Kramer on 12/19/2023 11:10:42. . Documentation recorded by the scribe, Suellen Child, accurately reflects the services(s) I performed and decisions made by me. Authenticated by Dr. Kramer on 12/19/2023 11:14:03. Problem List/Past Medical History Ongoing Elevated dehydroepiandrosterone sulfate level History of traumatic brain injury Hormone imbalance Intracranial shunt Memory deficit Metrorrhagia Migraine without aura and without status migrainosus, not intractable Partial symptomatic epilepsy with complex partial seizures, not intractable, without status epilepticus Post-traumatic headache, unspecified, not intractable S/P MICE RAISER shunt Seizures Thickened endometrium Historical No qualifying data Procedur (more content not included)... Normal [facility] Comment on above: Result Comment: Elec tronically Signed By: Alon KRAMER MD\.br\Date and Time Signed: 12/19/23 11:14 EDT\.br\Electronically Co-Signed By: Suellen Child\.br\Date and Time Co-Signed: 12/19/23 11:11 EDT HCG ( test) IA.rapi d Ql (U)Ordered By: Derek Quinn on 11-09-2023 HCG ( test) Ql (U) Negative [facility] HCG,Urineon 11-09-2023 Beta HCG ( test) Ql (U) Negative Normal [facility] Comment on above: Result Comment: PERF ORMED BY: [place] [address] PATHOLOGIST FIRE TECHNICIAN JOSE WALDROP M.D. Performed By: #### U HCG #### [address] Fidencio 11-09-2023 L Specimen: [id number] Received: 11/09/23 Status: SOUT Req Num: [id number] Spec Type: Surgical Subm Dr: Arleen Porter MD-[facility] Tissues: A Endometrium - Curettings (EMC) Procedures: HE/2, Gross/Micro L4 Age/ Patient Sex Location Account Attending Physician Bry Cummings 33/F [place] [id number] Arleen Porter MD-[facility] SPEC NUM: [id number] RECD: 11/09/23 STATUS: BRENNAN HERNANDEZ NUM: [id number] VERNON: 11/09/23- SUBM DR: Arleen Porter MD-[facility]YS ENTERED: 11/09/23 [facility] DR: SPEC TYPE: Surgical DEPT: S ORDERED: [...] A1. Clinical history: Menorrhagia, thickened endometrium Specimen: [id number] Received: 11/09/23 Status: BRENNAN Hernandez Num: [id number] Spec Type: Surgical Subm Dr: Arleen Porter MD-[facility]Y Tissues: A Endometrium - Curettings (EMC) Procedures: HE/2, Gross/Micro L4 Patient: Bry Cummings [id number] (Continued) Specimen: [id number] Received: 11/09/23 (Continued) Signed (signature on file) Marylin Waldron MD 11/12/232033 Specimen: [id number] Received: 11/09/23 Status: HALIDonnell Hernandez Num: [id number] Spec Type: Surgical Subm Dr: Arleen Porter MD-[facility]Y Tissues: A Endometrium - Curettings (EMC) Procedures: ELLIOT, Case/iMna L4 Patient: Bry Cummings [id number] (Continued) Specimen: [id number] Received: 11/09/23 (Continued) CPT Codes 72407 Specimen: [id number] Received: 11/09/23 Status: BRENNAN Hernandez Num: [id number] Spec Type: Surgical Subm Dr: Arleen Porter MD-[facility] Tissues: A Endometrium - Curettings (EMC) Procedures: HE/Mirna, Gross/Micro L4 Patient: Bry Cummings [id number] (Continued) Signed (signature on file) Marylin Waldron MD 11/12/232033 Normal [facility] US RENAL COMPLETEon 10-18-19 US [...] Interpretation and review of laboratory results Normal [facility] Preg Test, Ur Negative [facility] Comp Metabolic Profon 2020 (cont.) Normal [facility] Comment on above: Result Comment: Aver age GFR for 30-39 years old: 107 mL/min/1.73sq m Chronic Kidney Disease: <60 mL/min/1.73sq m Kidney failure: <15 mL/min/1.73sq m eGFR calculated using average adult body mass. Additional eGFR calculator available at: http://www.Chelaile.com/multiple_crcl_2012.htm Performed By: #### C DP, CP, LIPR, FT4, TSH #### [facility] [place] [address] Endoscopy Nurse: Robby Oconnor MD Albumin [Mass/Vol] 4.4 g/dL Normal 3.5-5.2 [facility] Comment on above: Performed By: #### C DP, CP, LIPR, FT4, TSH #### [address] [address] Endoscopy Nurse: Robby Oconnor MD Albumin/Glob Ratio 1.1 Normal 1.0-2.5 [facility] Comment on above: Performed By: #### C DP, CP, LIPR, FT4, TSH #### [address] [address] Endoscopy Nurse: Robby Oconnor MD Alkaline Phos 70 U/L Normal 35-104 [facility] Comment on above: Performed By: #### C DP, CP, LIPR, FT4, TSH #### [address] [address] Endoscopy Nurse: Robby Oconnor MD ALT [Catalytic activity/Vol] 10 U/L Normal 5-33 [facility] Comment on above: Performed By: #### C DP, CP, LIPR, FT4, TSH #### [address] [address] Endoscopy Nurse: Robby Oconnor MD Anion gap [Moles/Vol] 12 mmol/L Normal 9-17 [facility] Comment on above: Performed By: #### C DP, CP, LIPR, FT4, TSH #### [address] [address] Endoscopy Nurse: Robby Oconnor MD AST [Catalytic activity/Vol] 14 U/L Normal <32 [facility] Comment on above: Performed By: #### C DP, CP, LIPR, FT4, TSH #### [address] [address] Endoscopy Nurse: Robby Oconnor MD Bilirubin [Mass/Vol] 0.33 mg/dL Normal 0.3-1.2 [facility] Comment on above: Performed By: #### C DP, CP, LIPR, FT4, TSH #### [address] [address] Endoscopy Nurse: Robby Oconnor MD Calcium [Mass/Vol] 9.1 mg/dL Normal 8.6-10.4 [facility] Comment on above: Performed By: #### C DP, CP, LIPR, FT4, TSH #### [address] [address] Endoscopy Nurse: Robby Oconnor MD Chloride [Moles/Vol] 103 mmol/L Normal 98-107 [facility] Comment on above: Performed By: #### C DP, CP, LIPR, FT4, TSH #### [address] [address] Endoscopy Nurse: Robby Oconnor MD CO2 [Moles/Vol] 25 mmol/L Normal 20-31 [facility] Comment on above: Performed By: #### C DP, CP, LIPR, FT4, TSH #### [address] [address] Endoscopy Nurse: Robby Oconnor MD Creatinine [Mass/Vol] 0.54 mg/dL Normal 0.50-0.90 [facility] Comment on above: Performed By: #### C DP, CP, LIPR, FT4, TSH #### [address] [address] Endoscopy Nurse: Robby Oconnor MD GFR, Amer >60 Normal >60 [facility] Comment on above: Performed By: #### C DP, CP, LIPR, FT4, TSH #### [address] [address] Endoscopy Nurse: Robby Oconnor MD GFR,non Amer >60 Normal >60 [facility] Comment on above: Performed By: #### C DP, CP, LIPR, FT4, TSH #### [address] [address] Endoscopy Nurse: Robby Oconnor MD Glucose [Mass/Vol] 76 mg/dL Normal 70-99 [facility] Comment on above: Performed By: #### C DP, CP, LIPR, FT4, TSH #### [address] [address] Endoscopy Nurse: Robby Oconnor MD Potassium [Moles/Vol] 4.0 mmol/L Normal 3.7-5.3 [facility] Comment on above: Performed By: #### C DP, CP, LIPR, FT4, TSH #### [address] [address] Endoscopy Nurse: Robby Oconnor MD Protein [Mass/Vol] 8.5 g/dL High 6.4-8.3 [facility] Comment on above: Performed By: #### C DP, CP, LIPR, FT4, TSH #### [address] [address] Endoscopy Nurse: Robby Oconnor MD Sodium [Moles/Vol] 140 mmol/L Normal 135-144 [facility] Comment on above: Performed By: #### C DP, CP, LIPR, FT4, TSH #### [address] [address] Endoscopy Nurse: Robby Oconnor MD Urea nitrogen [Mass/Vol] 15 mg/dL Normal 6-20 [facility] Comment on above: Performed By: #### C DP, CP, LIPR, FT4, TSH #### [address] [address] Endoscopy Nurse: Robby Oconnor MD Lipid Profileon 12-23-2020 Cholesterol [Mass/Vol] 133 mg/dL Normal <200 [facility] Comment on above: Result Comment: Cholesterol Guidelines: <200 Desirable 200-240 Borderline >240 Undesirable Performed By: #### C DP, CP, LIPR, FT4, TSH #### [address] [address] Endoscopy Nurse: Robby Oconnor MD Cholesterol in HDL [Mass/Vol] 52 mg/dL Normal >40 [facility] Comment on above: Result Comment: HDL Guidelines: <40 Undesirable 40-59 Borderline >59 Desirable Performed By: #### C DP, CP, LIPR, FT4, TSH #### [address] [address] Endoscopy Nurse: Robby Oconnor MD Cholesterol in LDL [Mass/Vol] 61 mg/dL Normal 0-130 [facility] Comment on above: Result Comment: LDL Guidelines: <100 Desirable 100-129 Near to/above Desirable 130-159 Borderline >159 Undesirable Direct (measured) LDL and calculated LDL are not interchangeable tests. Performed By: #### C DP, CP, LIPR, FT4, TSH #### [facility] [address] [place] [address] Endoscopy Nurse: Robby Oconnor MD Cholesterol.total/Chol esterol in HDL [Mass ratio] 2.6 {ratio} Normal <5 [facility] Comment on above: Performed By: #### C DP, CP, LIPR, FT4, TSH #### [address] [address] Endoscopy Nurse: Robby Oconnor MD Triglyceride [Mass/Vol] 102 mg/dL Normal <150 [facility] Comment on above: Result Comment: Triglyceride Guidelines: <150 Desirable 150-199 Borderline 200-499 High >499 Very high Based on AHA Guidelines for fasting triglyceride, March 2012. Performed By: #### C DP, CP, LIPR, FT4, TSH #### [facility] [employer] [address] [place] [address] Endoscopy Nurse: Robby Oconnor MD Thyroid Stim. Horm.on 2020 TSH Qn 4.99 m[IU]/L Normal 0.30-5.00 [facility] Comment on above: Performed By: #### C DP, CP, LIPR, FT4, TSH #### [facility] [address] [place], [place] [id number] Endoscopy Nurse: Robby Oconnor MD Thyroxine, Freeon 12-23-2020 Thyroxine, Free 0.97 ng/dL Normal 0.93-1.70 [facility] Comment on above: Performed By: #### C DP, CP, LIPR, FT4, TSH #### [facility] [address] [place], [place] [address] Endoscopy Nurse: Robby Oconnor MD CBC With Auto DifferentialOr dered By: Mallory Ruiz on 12-22-2020 [employer] # 0.16 [employer] [facility] Work Phone: [employer] Immature Granulocyte <0.03 [employer] Work Phone: [employer] Lymph # 2.82 [employer] [facility] Work Phone: [employer] Mcdonough # 0.70 [employer] [facility] Work Phone: Basophils (Bld) [#/Vol] 0.05 10*3/uL [employer] Work Phone: Basophils/100 WBC (Bld) 1 % 0 - 2 % [employer] Phone: Differential Type NOT REPORTED [employer] Phone: Eosinophils/100 WBC (Bld) 3 % 1 - 4 % [employer] Phone: Hematocrit (Bld) [Volume fraction] 41.0 % 36.3 - 47.1 % [employer] Phone: Hemoglobin.gastrointes tinal spec 1 Ql (Stl) 13.1 g/dL 11.9 - 15.1 g/dL [employer] Phone: Immature granulocytes/100 WBC (Bld) 0 % 0 [employer] Phone: Interpretation and review of laboratory results Abnormal [employer] Phone: Lymphocytes/100 WBC (Bld) 51 % High 24 - 43 % [employer] Phone: MCH (RBC) [Entitic mass] 31.1 pg 25.2 - 33.5 pg [employer] Phone: MCHC (RBC) [Mass/Vol] 32.0 g/dL 28.4 - 34.8 g/dL [employer] Phone: MCV (RBC) [Entitic vol] 97.4 fL 82.6 - 102.9 fL [employer] Phone: Monocytes/100 WBC (Bld) 13 % High 3 - 12 % [employer] Phone: NRBC Automated 0.0 0.0 per 100 WBC [employer] Phone: Platelet distribution width (Bld) [Ratio] 13.4 % 11.8 - 14.4 % [employer] Phone: Platelet Estimate NOT REPORTED [employer] Phone: Platelet mean volume (Bld) [Entitic vol] 12.8 fL 8.1 - 13.5 fL [employer] Phone: Platelets (Bld) [#/Vol] 243 10*3/uL [employer] Phone: RBC (Bld) [#/Vol] 4.21 10*6/uL 3.95 - 5.1 1 m/uL [employer] Phone: RBC (Bld) [#/Vol] NOT REPORTED [employer] Phone: Segmented neutrophils/100 WBC (Bld) 32 % Low 36 - 65 % [employer] Phone: Segs Absolute 1.73 [employer] Work Phone: WBC (Bld) [#/Vol] 5.5 10*3/uL [facility] [employer] Phone: WBC (Bld) [#/Vol] NOT REPORTED [facility]: [facility] Phone: CBC with Diffon 12-22-2020 Abs. Basophil 0.05 k/uL Normal 0.00-0.20 [facility] Comment on above: Performed By: #### C DP, CP, LIPR, FT4, TSH #### [place] [address] Endoscopy Nurse: Robby Oconnor MD Abs.Imm.Granulocyte <0.03 Normal 0.00-0.30 [facility] Comment on above: Performed By: #### C DP, CP, LIPR, FT4, TSH #### [place] [address] Endoscopy Nurse: Robby Oconnor MD Abs.Neutrophil (Seg) 1.73 k/uL Normal 1.50-8.10 [facility] Comment on above: Performed By: #### C DP, CP, LIPR, FT4, TSH #### [place] [address] Endoscopy Nurse: Robby Oconnor MD Basophils/100 WBC (Bld) 1 % Normal 0-2 [facility] Comment on above: Performed By: #### C DP, CP, LIPR, FT4, TSH #### [place] [address] Endoscopy Nurse: Robby Oconnor MD Eosinophils (Bld) [#/Vol] 0.16 10*3/uL Normal 0.00-0.44 [facility] Comment on above: Performed By: #### C DP, CP, LIPR, FT4, TSH #### [place] [address] Endoscopy Nurse: Robby Oconnor MD Eosinophils/100 WBC (Bld) 3 % Normal 1-4 [facility] Comment on above: Performed By: #### C DP, CP, LIPR, FT4, TSH #### [address] [address] Endoscopy Nurse: Robby Oconnor MD Erythrocyte distribution width (RBC) [Ratio] 13.4 % Normal 11.8-14.4 [facility] Comment on above: Performed By: #### C DP, CP, LIPR, FT4, TSH #### [place] [address] Endoscopy Nurse: Robby Oconnor MD Hematocrit (Bld) [Volume fraction] 41.0 % Normal 36.3-47.1 [facility] Comment on above: Performed By: #### C DP, CP, LIPR, FT4, TSH #### [place] [address] Endoscopy Nurse: Robby Oconnor MD Hemoglobin (Bld) [Mass/Vol] 13.1 g/dL Normal 11.9-15.1 [facility] Comment on above: Performed By: #### C DP, CP, LIPR, FT4, TSH #### [place] [address] Endoscopy Nurse: Robby Oconnor MD Immature granulocytes/100 WBC (Bld) 0 % Normal 0 [facility] Comment on above: Performed By: #### C DP, CP, LIPR, FT4, TSH #### [place] [address] Endoscopy Nurse: Robby Oconnor MD Lymphocytes (Bld) [#/Vol] 2.82 10*3/uL Normal 1.10-3.70 [facility] Comment on above: Performed By: #### C DP, CP, LIPR, FT4, TSH #### [address] [address] Endoscopy Nurse: Robby Oconnor MD Lymphocytes/100 WBC (Bld) 51 % High 24-43 [facility] Comment on above: Performed By: #### C DP, CP, LIPR, FT4, TSH #### [address] [address] Endoscopy Nurse: Robby Oconnor MD MCH (RBC) [Entitic mass] 31.1 pg Normal 25.2-33.5 [facility] Comment on above: Performed By: #### C DP, CP, LIPR, FT4, TSH #### [address] [address] Endoscopy Nurse: Robby Oconnor MD MCHC (RBC) [Mass/Vol] 32.0 g/dL Normal 28.4-34.8 [facility] Comment on above: Performed By: #### C DP, CP, LIPR, FT4, TSH #### [address] [address] Endoscopy Nurse: Robby Oconnor MD MCV (RBC) [Entitic vol] 97.4 fL Normal 82.6-102.9 [facility] Comment on above: Performed By: #### C DP, CP, LIPR, FT4, TSH #### [address] [address] Endoscopy Nurse: Robby Oconnor MD Monocytes (Bld) [#/Vol] 0.70 10*3/uL Normal 0.10-1.20 [facility] Comment on above: Performed By: #### C DP, CP, LIPR, FT4, TSH #### [address] [address] Endoscopy Nurse: Robby Oconnor MD Monocytes/100 WBC (Bld) 13 % High 3-12 [facility] Comment on above: Performed By: #### C DP, CP, LIPR, FT4, TSH #### [address] [address] Endoscopy Nurse: Robby Oconnor MD Neutrophil (Seg) 32 % Low 36-65 [facility] Comment on above: Performed By: #### C DP, CP, LIPR, FT4, TSH #### [address] [address] Endoscopy Nurse: Robby Ocononr MD NRBC Automated 0.0 per 100 WBC Normal 0.0 [facility] Comment on above: Performed By: #### C DP, CP, LIPR, FT4, TSH #### [address] [address] Endoscopy Nurse: Robby Oconnor MD Platelet mean volume (Bld) [Entitic vol] 12.8 fL Normal 8.1-13.5 [facility] Comment on above: Performed By: #### C DP, CP, LIPR, FT4, TSH #### [address] [address] Endoscopy Nurse: Robby Oconnor MD Platelets (Bld) [#/Vol] 243 10*3/uL Normal 138-453 [facility] Comment on above: Performed By: #### C DP, CP, LIPR, FT4, TSH #### [address] [address] Endoscopy Nurse: Robby Oconnor MD RBC (Bld) [#/Vol] 4.21 10*6/uL Normal 3.95-5.11 [facility] Comment on above: Performed By: #### C DP, CP, LIPR, FT4, TSH #### [address] [address] Endoscopy Nurse: Robby Oconnor MD WBC (Bld) [#/Vol] 5.5 10*3/uL Normal 3.5-11.3 [facility] Comment on above: Performed By: #### C DP, CP, LIPR, FT4, TSH #### [address] [address] Endoscopy Nurse: Robby Oconnor MD Auto Diff Performed NOT REPORTED Normal [facility] Comment on above: Performed By: #### C DP, CP, LIPR, FT4, TSH #### [address] [address] Endoscopy Nurse: Robby Oconnor MD Platelet Estimate NOT REPORTED Normal [facility] Comment on above: Performed By: #### C DP, CP, LIPR, FT4, TSH #### [address] [address] Endoscopy Nurse: Robby Oconnor MD RBC morphology finding Nom (Bld) NOT REPORTED Normal [facility] Comment on above: Performed By: #### C DP, CP, LIPR, FT4, TSH #### [address] [address] Endoscopy Nurse: Robby Oconnor MD WBC Morphology NOT REPORTED Normal [facility] Comment on above: Performed By: #### C DP, CP, LIPR, FT4, TSH #### [address] [address] Endoscopy Nurse: Robby Oconnor MD Comp Metabolic Profon 2020 BUN/CRE Ratio NOT REPORTED Normal - [facility] Comment on above: Performed By: #### C DP, CP, LIPR, FT4, TSH #### [address] [address] Endoscopy Nurse: Robby Oconnor MD Staging: NOT REPORTED Normal [facility] Comment on above: Performed By: #### C DP, CP, LIPR, FT4, TSH #### [address] [address] [place] [address] Endoscopy Nurse: Robby Oconnor MD Comprehensive Metabolic Pane lOrdered By: Mallory Ruiz on 12-22-2020 Albumin [Mass/Vol] 4.4 g/dL 3.5 - 5.2 g/dL [employer] Phone: Albumin/Globulin [Mass ratio] 1.1 {ratio} [employer] Phone: ALP (Bld) [Catalytic activity/Vol] 70 U/L 35 - 104 U/L [employer] Phone: ALT [Catalytic activity/Vol] 10 U/L 5 - 33 U/L [employer] Phone: Anion gap [Moles/Vol] 12 mmol/L 9 - 17 mmol/L [employer] Phone: AST [Catalytic activity/Vol] 14 U/L <32 [employer] Phone: Bilirubin [Mass/Vol] 0.33 mg/dL 0.3 - 1 .2 mg/dL [employer] Phone: Calcium [Mass/Vol] 9.1 mg/dL 8.6 - 10. 4 mg/dL [employer] Phone: Chloride [Moles/Vol] 103 mmol/L 98 - 10 7 mmol/L [employer] Phone: CO2 [Moles/Vol] 25 mmol/L 20 - 31 mmol/L [employer] Phone: Creatinine [Mass/Vol] 0.54 mg/dL 0.50 - 0.90 mg/dL [employer] Phone: Free PSA/Total PSA [Mass fraction] 8.5 g/dL High 6.4 - 8.3 g/dL [employer] Phone: GFR >60 >60 mL/min [employer] Phone: GFR Non- >60 >60 mL/min [employer] Phone: GFR/1.73 sq M.predicted MDRD (S/P/Bld) [Vol rate/Area] [employer] Phone: Comment on above: Average GFR for 30-3 9 years old: 107 mL/min/1.73sq m Chronic Kidney Disease: <60 mL/min/1.73sq m Kidney failure: <15 mL/min/1.73sq m eGFR calculated using average adult body mass. Additional eGFR calculator available at: http://www.Spotted/multiple_crcl_2012.htm GFR/1.73 sq M.predicted MDRD (S/P/Bld) [Vol rate/Area] NOT REPORTED [employer] Phone: Glucose [Mass/Vol] 76 mg/dL 70 - 99 mg/dL [employer] Phone: Interpretation and review of laboratory results Abnormal [employer] Phone: Potassium [Moles/Vol] 4.0 mmol/L 3.7 - 5.3 mmol/L [employer] Phone: Sodium [Moles/Vol] 140 mmol/L 135 - 144 mmol/L [employer] Phone: Urea nitrogen (BldV) [Mass/Vol] 15 mg/dL 6 - 20 mg/dL [employer] Phone: Urea nitrogen/Creatinine (Bld) [Mass ratio] NOT REPORTED [employer] Phone: Lipid PanelOrdered By: Mallory Ruiz on 12-22-2020 Cholesterol [Mass/Vol] 133 mg/dL <200 [employer] Phone: Comment on above: Cholesterol Guidelines: <200 Desirable 200-240 Borderline >240 Undesirable Cholesterol in HDL [Mass/Vol] 52 mg/dL >40 [employer] Phone: Comment on above: HDL Guidelines: <40 Undesirable 40-59 Borderline >59 Desirable Cholesterol in LDL [Mass/Vol] 61 mg/dL 0 - 130 mg/dL [employer] Phone: Comment on above: LDL Guidelines: <100 Desirable 100-129 Near to/above Desirable 130-159 Borderline >159 Undesirable Direct (measured) LDL and calculated LDL are not interchangeable tests. Cholesterol in VLDL [Mass/Vol] NOT REPORTED 30 mg/dL [employer] Phone: Cholesterol.total/Chol esterol in HDL [Mass ratio] 2.6 {ratio} <5 [employer] Phone: Triglyceride [Mass/Vol] 102 mg/dL <150 [employer] Phone: Comment on above: Triglyceride Guidelines: <150 Desirable 150-199 Borderline 200-499 High >499 Very high Based on AHA Guidelines for fasting triglyceride, March 2012. Lipid Profileon 12-22-2020 Cholesterol,VLDL NOT REPORTED Normal 07-24 [facility] Comment on above: Performed By: #### C DP, CP, LIPR, FT4, TSH #### [address] [address] [place] [address] Endoscopy Nurse: Robby Oconnor MD No Panel InformationOrdered By: Mallory Ruiz on 12-22-2020 [employer] Phone: [employer] Phone: T4, FreeOrdered By: Mallory slater on 12-22-2020 Thyroxine, Free 0.97 ng/dL 0.93 - 1.70 ng/dL [employer] Phone: TSHOrdered By: Mallory Ruiz o n 12-22-2020 TSH Qn 4.99 m[IU]/L [employer] Phone: Vital Signs Date Time Vital Sign Value Performing Clinician Facility 12-19-2023 10:24-0400 Blood Pressure Location Alon KRAMER [facility] 12-19-2023 10:24-0400 Body temperature 96.8 [degF] Alon KRAMER [facility] 12-19-2023 10:24-0400 Diastolic blood pressure 69 mm[Hg] Alon KRAMER [facility] 12-19-2023 10:24-0400 Heart rate 62 /min Alon KRAMER [facility] 12-19-2023 10:24-0400 Respiratory rate 18 /min Alon KRAMER [facility] 12-19-2023 10:24-0400 Systolic blood pressure 110 mm[Hg] Alon KRAMER [facility] 11-09-2023 09:07-0400 Diastolic blood pressure 81 mm[Hg] MD Yassine Hitchcock Work Phone: [facility] 11-09-2023 09:07-0400 Heart rate 53 /min MD Yassine Hitchcock Work Phone: [facility] 11-09-2023 09:07-0400 Respiratory rate 16 /min MD Yassine Hitchcock Work Phone: [facility] 11-09-2023 09:07-0400 SaO2% (BldA) [Mass fraction] 100 % MD Yassine Hitchcock Work Phone: [facility] 11-09-2023 09:07-0400 Systolic blood pressure 114 mm[Hg] MD Yassine Hitchcock Work Phone: [facility] 11-09-2023 08:35-0400 Inhaled oxygen flow rate 6 L/min MD Yassine Hitchcock Work Phone: [facility] 11-09-2023 08:18-0400 Body height 170.18 cm MD Yassine Hitchcock Work Phone: [facility] 11-09-2023 08:18-0400 Body mass index (BMI) [Ratio] 23.5 kg/m2 MD Yassine Hitchcock Work Phone: [facility] 11-09-2023 08:18-0400 Body weight 68.03 kg MD Yassine Hitchcock Work Phone: [facility] 11-09-2023 06:26-0400 Body temperature 98.2 [degF] MD Yassine Hitchcock Work Phone: [facility] 07-31-2023 15:04-0500 Body height 170.2 cm Gay Warchol DIRECTOR CLINICAL OPERATIONS Work Phone: [facility] 07-31-2023 15:04-0500 Body mass index (BMI) [Ratio] 23.27 kg/m2 Gay Warchol DIRECTOR CLINICAL OPERATIONS Work Phone: [facility] 07-31-2023 15:04-0500 Body temperature 97.9 [degF] Gay Warchol DIRECTOR CLINICAL OPERATIONS Work Phone: [facility] 07-31-2023 15:04-0500 Body weight 67.41 kg Gay Warchol DIRECTOR CLINICAL OPERATIONS Work Phone: [facility] 07-31-2023 15:04-0500 Diastolic blood pressure 70 mm[Hg] Gay Warchol DIRECTOR CLINICAL OPERATIONS Work Phone: [facility] 07-31-2023 15:04-0500 Heart rate 69 /min Gay Warchol DIRECTOR CLINICAL OPERATIONS Work Phone: [facility] 07-31-2023 15:04-0500 SaO2% (BldA) [Mass fraction] 98 % Gay Warchol DIRECTOR CLINICAL OPERATIONS Work Phone: [facility] 07-31-2023 15:04-0500 Systolic blood pressure 118 mm[Hg] Gay Warchol DIRECTOR CLINICAL OPERATIONS Work Phone: [facility] Encounters Encounter Date Encounter Type Care Provider Facility Start: 02-14-2024 ambulatory Alon KRAMER Facili ty:CD:[id number] Start: 01-24-2024 End: 01-24-2024 ambulatory Alon KRAMER Facility:CD:[id number] Start: 01-01-2024 End: 01-01-2024 ambulatory Alon KRAMER [place] [place]: 01-01-2024 End: 01-01-2024 Patient encounter procedure Alon KRAMER [facility] Start: 12-25-2023 End: 12-25-2023 ambulatory [facility] Start: 12-19-2023 End: 12-19-2023 ambulatory Alon KRAMER Facility:[facility] Start: 12-19-2023 End: 12-19-2023 Patient encounter procedure Alon KRAMER [facility] Start: 11-27-2023 End: 11-27-2023 ambulatory PENOLA P PORTER Not Available Start: 11-12-2023 ambulatory Alon KRAMER Facility :[facility] Start: 11-09-2023 End: 11-09-2023 Admission to same day surgery center MD Yassine Hitchcock Work Phone: [facility] [place] Start: 11-09-2023 End: 11-09-2023 ambulatory MD Yassine Hitchcock Work Phone: [facility] Work Phone: Start: 10-18-2023 End: 10-18-2023 ambulatory PENOLA P PORTER Not Available Start: 10-15-2023 End: 10-15-2023 ambulatory PENOLA P PORTER Not Available Start: 09-04-2023 End: 09-04-2023 ambulatory PENOLA P PORTER Not Available Start: 08-29-2023 Telephone encounter [facility] Comment on above: tue appointment Start: 07-31-2023 End: 07-31-2023 Office outpatient visit 15 minutes Gay Gandhi NP Work Phone: [facility] Comment on above: Adult general medica l examination (Primary Dx); Menstrual abnormality; Metrorrhagia Start: 07-31-2023 End: 07-31-2023 Patient encounter status Gay Gandhi DIRECTOR CLINICAL OPERATIONS Work Phone: [facility] Work Phone: Start: 07-31-2023 End: 07-31-2023 ambulatory GAY GANDHI Not Available Start: 12-22-2020 End: 12-23-2020 ambulatory MALLORY RUIZ [facility] Start: 12-22-2020 End: 12-22-2020 Patient encounter status Mallory Ruiz SHAKER REPAIRER - RIGGING HELPER Work Phone: [facility] Start: 12-22-2020 End: 12-22-2020 Subsequent hospital visit by physician Mallory Ruiz SHAKER REPAIRER - RIGGING HELPER Work Phone: [facility] Comment on above: Encounter for well a dult exam with abnormal findings; Screening cholesterol level; Thyroid disorder screening Start: 04-23-2019 End: 04-23-2019 Subsequent hospital visit by physician Mallory Ruiz [facility] Procedures Date Procedure Procedure Detail Performing Clinician Start: 11-09-2023 Hysteroscopy MD Yassine branham Work Phone: Start: 07-31-2023 Urine test visual color cmprsn meths Gay Gandhi DIRECTOR CLINICAL OPERATIONS Work Phone: Start: 05-09-2022 Adult depression scr eening assessment Diana Das Start: 12-22-2020 Comprehensive metabo lic panel Mallory Ruiz SHAKER REPAIRER - RIGGING HELPER Work Phone: Start: 12-22-2020 Lipid panel Mallory lynn SHAKER REPAIRER - RIGGING HELPER Work Phone: Brain structure (bod y structure) Alon KRAMER Plan of Treatment Date Care Activity Detail Author Start: 12-18-2028 DTaP,Tdap and Td Vaccines (6 - Td or Tdap) DTaP,Tdap and Td Vaccines (6 - Td or Tdap) [facility] Start: 12-18-2028 DTaP/Tdap/Td vaccine (6 - Td or Tdap) DTaP/Tdap/Td vaccine (6 - Td or Tdap) [employer] Phone: Start: 12-18-2028 DTaP/Tdap/Td vaccine (6 - Td) DTaP/Tdap/Td vaccine (6 - Td) [facility] [place] Start: 07-31-2024 Medicare Annual Well ness (AWV) Medicare Annual Wellness (AWV) [facility] Start: 04-23-2024 Screening for malign ant neoplasm of cervix [facility] Start: 01-18-2024 Adult BMI Screening Adult BMI Screen ing [facility] Start: 01-18-2024 Tobacco Screening Tobacco Screening [facility] Start: 12-25-2023 End: 12-25-2023 Patient encounter procedure 12/25/2023 10:30 AM EDT Office Visit [facility] [address] [place] [id number] Dileep Richter MD [address] [place] [address], [address] [place] [address] [facility] Start: 12-23-2023 Influenza vaccination Influenza Vacc ine (#1) [facility] Comment on above: Postponed from 02/23 (Patient Refused) Start: 11-10-2023 [facility] Start: 11-09-2023 End: 11-09-2023 [facility] Start: 05-09-2023 Depression Screening Depression Scre ening [facility] Start: 02-23-2023 Influenza vaccination Influenza Vacc ine [facility] Start: 12-22-2021 COVID-19 Vaccine (1) COVID-19 Vaccin e (1) [employer] Phone: Comment on above: Postponed from 03/01 (Patient Refused) Start: 12-22-2021 Meningococcal B vacc ine (1 of 4 - Increased Risk Bexsero 2-dose series) Meningococcal B vaccine (1 of 4 - Increased Risk Bexsero 2-dose series) [employer] Phone: Comment on above: Postponed from 03/01 (Patient Refused) Start: 12-22-2021 Pneumococcal 0-64 ye ars Vaccine (1 of 4 - PCV13) Pneumococcal 0-64 years Vaccine (1 of 4 - PCV13) [employer] Phone: Comment on above: Postponed from 03/01 (Patient Refused) Start: 02-23-2021 Influenza vaccination Flu vacc ine ([facility] Ended[facility] Start: 12-22-2020 Meningococcal (ACWY) vaccine (1 - Risk start before 7 months 4-dose series) Meningococcal (ACWY) vaccine (1 - Risk start before 7 months 4-dose series) [employer] Phone: Comment on above: Postponed from 05/01 (Patient Refused) Start: 12-18-2019 Annual Wellness Visi t (AWV) Annual Wellness Visit (AWV) [place], [place] Start: 02-23-2019 Influenza vaccination Flu vaccine (# 1) [place], [place] Start: 12-15-2018 Annual Wellness Visi t (AWV) Annual Wellness Visit (AWV) [facility] [employer] Phone: Start: 2009 Cervical cancer screen Cervical canc er screen [place], [place] Start: 2009 Screening for malign ant neoplasm of cervix Pap Smear [facility] Start: 2001 Varicella Vaccine (1 of 2 - 13+ 2-dose series) Varicella Vaccine (1 of 2 - 13+ 2-dose series) [place], [place] End: 04-24-2019 [facility] Lab Routine Once for 1 Occurrences starting 04/24/2019 until 04/24/2019 [place] Comment on above: Once for 1 Occurrenc es starting 04/24/2019 until 04/24/2019 End: 04-23-2019 Human papillomavirus (HPV) DNA probe thin prep high risk Human papillomavirus (HPV) DNA probe thin prep high risk Lab Routine Once for 1 Occurrences starting 04/23/2019 until 04/23/2019 [place], [place] Comment on above: Once for 1 Occurrenc es starting 04/23/2019 until 04/23/2019 Human papillomavirus (HPV) DNA probe thin prep high risk Human papillomavirus (HPV) DNA probe thin prep high risk Lab Routine 04/23/2019 8:00 PM EDT [facility], [place] Patient Education Allie and Bobbi dukes (JUSTO) Know your Meds [facility] Work Phone: Patient referral [facility] Work Phone: Immunizations Immunization Date Immunization Notes Care Provider Fa cilidoris 12-18-2018 tetanus toxoid, redu melquiades diphtheria toxoid, and acellular pertussis vaccine, adsorbed [facility] Comment on above: Result Comment: 2023: VIS DATE: 08/18/2014 08-12-2014 tuberculin skin test ; purified protein derivative solution, intradermal [facility], [place] 02-05-2009 hepatitis A vaccine, unspecified formulation [facility] , [place] 02-05-2009 hepatitis B vaccine, unspecified formulation [place], [place] 04-19-2004 TD(adult) unspecifie d formulation; Translations: [Td(adult) unspecified formulation] [facility] 04-19-2004 Td, unspecified formulation [facility], [place] 02-01-2000 measles, mumps and rubella virus vaccine [facility] 02-07-1993 diphtheria, tetanus toxoids and acellular pertussis vaccine [place], [place] 02-07-1993 poliovirus vaccine, inactivated [facility], [place] 01-23-1990 haemophilus influenz ae type b vaccine, PRP-T conjugate [facility] 01-23-1990 measles, mumps and rubella virus vaccine [facility] 06-13-1989 diphtheria, tetanus toxoids and acellular pertussis vaccine [facility], [place] 01-06-1989 diphtheria, tetanus toxoids and acellular pertussis vaccine [place], [place] 01-06-1989 poliovirus vaccine, inactivated [facility], [place] 1988 diphtheria, tetanus toxoids and acellular pertussis vaccine [facility], [place] 1988 poliovirus vaccine, inactivated [place], [place] Payers Date Payer Category Payer Self-pay 2023 Private Health Insurance [id number] 2021 Medicaid MEDICAID [facility] M EDICAID [id number] 2021-Present [phone] [address] [place] [address] [id number] 2018 Medicaid MEDICAID [place] [facility] DEPT OF JOB xxxxxxxxxxxx 2018-Present [phone] [address] [place] [address] xxxxxxxxxxxx [id number] 2018 Medicaid [id number] 2015 Medicare MEDICARE MEDICAR E PART A AND B xxxxxxxxxx 2015-Present [phone] [place] [address] xxxxxxxxxx [id number] 2015 Medicare [id number] 2008 Medicare [id number] 1988 Unknown [id number] .175 1988 Unknown [id number] [id number] .1259 1988 Unknown [id number] [id number] .1259 1988 Unknown [id number] [id number] .1259 1988 Unknown [id number] [id number] .1259 1988 Unknown [id number] 2.16.840.1.240899.3.579.2 .1259 1988 Unknown [id number] [id number] .1259 1988 Unknown [id number] 2.16.840.1.554940.3.579.2 .1286 1988 Unknown [id number] 2.16.840.1.316474.3.579.2 .727 1988 Unknown [id number] [id number] .727 1988 Unknown [id number] [id number] .727 Medicaid Medicaid [id number] Unknown [id number] .531 Social History Date Type Detail Facility Start: 12-18-2018 End: 12-19-2023 Tobacco smoking status NHIS Never smoker [facility] [place] Start: 12-18-2018 End: 08-05-2020 Alcohol intake No [facility] [place] Start: 1990 Sex Assigned At Not on file M [place], [place] Start: 12-22-2020 End: 05-09-2022 Tobacco use and exposure Never used [facility] Start: 12-22-2020 Alcohol intake Current non-dr cloth shrinker of alcohol (finding) [facility] Work Phone: Start: 12-22-2020 History SDOH Financial 5 [facility] Work Phone: Start: 12-22-2020 History SDOH Food Worry 1 [employer] Phone: Exposure to SARS-CoV -2 (event) Not sure [facility] Start: 07-31-2023 Alcohol intake Lifetime non-d hannah (finding) [facility] Start: 08-05-2020 End: 07-31-2023 History of Social function [facility] Start: 01-17-2023 Alcohol intake Ex-drinker (finding) [facility] Adolescent depressio n screening assessment 0 [facility] Start: 1990 Sex Assigned At Female F [facility] Goals Date Patient Goal Desired Activity /State Functional Status Date Assessment Result Facility 12-19-2023 Functional Status N/A [facility] Clinical Notes 07-31-2023 to 01-01-2024 Note Date [...] ureteroscopy and left stent placement under general. [facility]07-09-2024 Hospital Discharge instructions Patient Education [...] degrees. Follow Up Care 12/21/2023 09:34:04 With:Alon KRAMER Address: [address] [place] [address] [place] [id number] Business (1) When: Unknown Comments:Office will call to schedule follow up [facility]07-09-2024 NotePatient Education Urology Intravenous Pyelogram An intravenous pyelogram is a type of X-ray that is used to check for problems in the kidneys, ureters, and bladder. This test can help your doctor find problems, such as: ? Kidney stones. ? Bladder stones. ? A prostate that has become large. ? Tumors. Tell your doctor about: ? Any allergies you have. ? All medicines you are taking. These include vitamins, herbs, eye drops, creams, and drow-ige-yjeectr medicines. ? Any problems you or family members have had with anesthetic medicines. ? Any blood disorders you have. ? Any surgeries you have had. ? Any other medical conditions you have. ? Whether you are or may be . What are the risks? Generally, this is a safe procedure. However, problems may occur, including: ? Feeling like you may vomit (nausea). ? Getting an allergy from the dye that is used during the test. What happens before the procedure? ? Follow instructions from your doctor about eating or drinking. ? Follow instructions from your doctor about taking an oral bowel prep. ? Ask your doctor about changing or stopping your normal medicines. This is important if: ? You are taking medicines for diabetes. ? You are taking medicines to thin your blood. ? You may need to remove glasses, jewelry, and any other metal objects. ? You may be asked to put on a hospital gown. What happens during the procedure? ? You will lie down on an exam table. ? An IV tube will be inserted into one of your veins. ? A dye will be put into the IV tube. The dye helps your doctor to see your kidneys, ureters, and bladder better on X-rays. When the dye goes in, you may feel warm or have a strange taste in your mouth. The feeling or the taste will go away in a short time. ? A medical records field technician will take X-rays. To make the X-rays clearer, the medical records field technician: ? May press on your belly (abdomen). ? May ask you not to move for long periods of time. ? May ask you to change positions from time to time. ? You may be asked to pee (urinate) before the last X-ray. The procedure may vary among doctors and hospitals. What can I expect after the procedure? ? You may feel weak from not eating or drinking. ? You can go back to your normal activities. ? You can safely drive home. Follow these instructions at home: ? Take ktuu-kyk-sirnvci and prescription medicines only as told by your doctor. ? Return to your normal activities as told by your doctor. Ask your doctor what activities are safefor you. ? Drink enough fluid to keep your pee pale yellow. This will help flush out the dye in your body. ? It is up to you to get the results of your test. Ask your doctor, or the department that is doingthe test, when your results will be ready. ? Keep all follow-up visits as told by your doctor. This is important. Contact a doctor if: ? You start peeing less than you normally do. Get help right away if: ? You feel like you may vomit. ? You vomit. ? You have itching or itchy, red, swollen areas on the skin (hives). ? You have trouble breathing. ? Your throat swells. ? You have chest pain. ? You have chills or a fever. Summary ? An intravenous pyelogram is a type of X-ray that is used to check for problems in the kidneys, ureters, and bladder. ? This is a safe procedure. However, problems may occur, including feeling like you may vomit (nausea) or getting an allergy from the dye used during the test. ? Follow what your doctor tells you about eating and drinking and taking medicines. ? Go back to your normal activities after the test. Drink plenty of fluids. Plan to get the resultsof your test. ? Get help right away if you vomit, you have chest pain or a fever, or your body itches or your throat swells. This information is not intended to replace advice given to you by your health care provider. Make sure you discuss any questions you have with your health care provider. Document Revised: 02/22/2022 Document Reviewed: 08/28/2019 [employer] Patient Education ? 2022 [employer].[facility] 01-01-2024 NoteProgress Note-Physician Patient: BRY CUMMINGS Age: 33 years Sex: Female : 1990 Associated Diagnoses: None Author: TAVON GUERRERO, Alon Anna X this lady has urinary frequency. Ultrasound suggested a bladder mass. 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 Review of Systems ROS reviewed as documented in chart Health Status Allergies: Allergic Reactions (Selected) No Known Medication Allergies Current medications: Home Medications (3) Active Cipro 500 mg Tab 500 mg = 1 tab(s), Oral, Daily Keppra 500 mg Tab , Oral, BID Macrobid 100 mg Cap 100 mg = 1 cap(s), Oral, Daily Problem list: All Problems History of traumatic brain injury / SNOMED CT 8036898647 / Confirmed Intracranial shunt / SNOMED CT 5834604288 / Confirmed Memory deficit / SNOMED CT 9622370177 / Confirmed Migraine without aura and without status migrainosus, not intractable / SNOMED CT 2339382050 / Confirmed Partial symptomatic epilepsy with complex partial seizures, not intractable, without status epilepticus / SNOMED CT 166733645 / Confirmed Post-traumatic headache, unspecified, not intractable / SNOMED CT 06033534 / Confirmed S/P MICE RAISER shunt / SNOMED CT 8646892447 / Confirmed Seizures / SNOMED CT 886399472 / Confirmed Metrorrhagia / SNOMED CT 983776026 / Confirmed Hormone imbalance / SNOMED CT 864353620 / Confirmed Thickened endometrium / SNOMED CT 4332539863 / Confirmed Elevated dehydroepiandrosterone sulfate level / SNOMED CT 065428502 / Confirmed Histories Past Medical History: No active or resolved past medical history items have been selected or recorded. Family History: No family history items have been selected or recorded. Procedure history: Brain (30164449). Social History Social & Psychosocial Habits Tobacco 12/19/2023 Tobacco Use: Never (less than 100 in l Smokeless tobacco use: Never . Objective Afebrile vital signs are stable. She is in no acute distress. Abdomen is soft and nontender. Impression and Plan Impression: #1. She has [...] left ureteroscopy and left stent placement under general.[facility]:Result Comment: Electronically Signed By: TAVON GUERRERO, Alon Meng.mitch\Date and Time Signed: 01/01/24 11:30 [id number] Note Patient Education Custom Cystoscopy ? Voiding after the procedure: there may be some pain, burning, urgency, frequency and blood tingedurine following the procedure. These symptoms usually resolve within 2-5 days. Drink the amount of fluid it takes to keep the urine pink to yellow or clear in color. Drinking enough water and fluids will help to ease any discomfort after your procedure. ? If you are having problems that seem out of the ordinary, please call. ? If unable to contact your physician and you feel it is an emergency, go to the nearest emergency room or call 911 ? Diet ? you may resume your normal diet. ? Activity ? you may resume your normal activities ? Call if you have a fever over 100 degrees.[facility] 12-19-2023 Hospital Discharge instructions Patient Education 12/19/2023 11:09:35 [...] including vitamins, herbs, eye drops, creams, and ecly-fcw-quasecm medicines. Any problems you or family members [...] provider tells you to take them. Taking dflc-dqy-nhrtfub medicines, vitamins, herbs, and supplements. Tests You [...] Follow these instructions at home: Medicines Take awpc-qrt-gzwwnfh and prescription medicines only as told by [...] provider. Document Revised: 02/22/2022 Document Reviewed: 01/21/2021 [employer] Patient Education 2022 [employer]. Follow Up Care 11/13/2023 12:45:34 With:TAVON GUERRERO, Alon Haq, URL Address: [facility] [address], [place] [address]- When: Unknown [facility] 06-26-2024 NoteUrology Cystoscopy Cystoscopy is a procedure that is [...] Cystoscopy may be recommended if you have: ? Urinary tract infections that keep coming back. ? Blood in the urine (hematuria). ? An inability to control when you urinate (urinary incontinence) or an overactive bladder. ? Unusual cells found in a urine sample. ? A blockage in the urethra, such as a urinary stone. ? Painful urination. ? An abnormality in the bladder found during an intravenous pyelogram (IVP) or CT scan. Cystoscopy may also be done to remove a sample of tissue to be examined under a microscope (biopsy). Tell a health care provider about: ? Any allergies you have. ? All medicines you are taking, including vitamins, herbs, eye drops, creams, and aezs-nwh-efkooyp medicines. ? Any problems you or family members have had with anesthetic medicines. ? Any blood disorders you have. ? Any surgeries you have had. ? Any medical conditions you have. ? Whether you are or may be . What are the risks? Generally, this is a safe procedure. However, problems may occur, including: ? Infection. ? Bleeding. ? Allergic reactions to medicines. ? Damage to other structures or organs. What happens before the procedure? Medicines Ask your health care provider about: ? Changing or stopping your regular medicines. This is especially important if you are taking diabetes medicines or blood thinners. ? Taking medicines such as aspirin and ibuprofen. These medicines can thin your blood. Do not take these medicines unless your health care provider tells you to take them. ? Taking ijcw-iib-vrtieqk medicines, vitamins, herbs, and supplements. Tests You may have an exam or testing, such as: ? X-rays of the bladder, urethra, or kidneys. ? CT scan of the abdomen or pelvis. ? Urine tests to check for signs of infection. General instructions ? Follow instructions from your health care provider about eating or drinking restrictions. ? Ask your health care provider what steps will be taken to help prevent infection. These steps mayinclude: ? Washing skin with a germ-killing soap. ? Taking antibiotic medicine. ? Plan to have a responsible adult take you home from the hospital or clinic. What happens during the procedure? ? You will be given one or more of the following: ? A medicine to help you relax (sedative). ? A medicine to numb the area (local anesthetic). ? The area around the opening of your urethra will be cleaned. ? The cystoscope will be passed through your urethra into your bladder. ? Germ-free (sterile) fluid will flow through the cystoscope to fill your bladder. The fluid will stretch your bladder so that your health care provider can clearly examine your bladder bonilla. ? Your doctor will look at the urethra and bladder. Your doctor may take a biopsy or remove stones. ? The cystoscope will be removed, and your bladder will be emptied. The procedure may vary among health care providers and hospitals. What can I expect after the procedure? After the procedure, it is common to have: ? Some soreness or pain in your abdomen and urethra. ? Urinary symptoms. These include: ? Mild pain or burning when you urinate. Pain should stop within a few minutes after you urinate. This may last for up to 1 week. ? A small amount of blood in your urine for several days. ? Feeling like you need to urinate but producing only a small amount of urine. Follow these instructions at home: Medicines ? Take afmn-jzh-ebktrrm and prescription medicines only as told by your health care provider. ? If you were prescribed an antibiotic medicine, take it as told by your health care provider. Do not stop taking the antibiotic even if you start to feel better. General instructions ? Return to your normal activities as told by your health care provider. Ask your health care provider what activities are safe for you. ? If you were given a sedative during the procedure, it can affect you for several hours. Do not drive or operate machinery until your health care provider says that it is safe. ? Watch for any blood in your urine. If the amount of blood in your urine increases, call your health care provider. ? Follow instructions from your health care provider about eating or drinking restrictions. ? If a tissue sample was removed for testing (biopsy) during your procedure, it is up to you to getyour test results. Ask your health care provider, or the department th (more content not included)...[facility] 08-29-2023 Miscellaneous Notes* Telephone Encounter - Diana Das - 08/29/2023 10:16 AM EST Patient mother called to reschedule appointment for a SUNDAY patient mother mention that is the days her and her daughter have off. Patient is reschedule 12/25/2023 Dr. Rihcter 10:30am [facility] Tele[facility] encounter Note* Telephone Encounter - Diana Das - 08/29/2023 10:16 AM EST Patient mother called to reschedule appointment for a SUNDAY patient mother mention that is the days her and her daughter have off. Patient is reschedule 12/25/2023 Dr. Richter 10:30am [facility]02-06-2024 History of Present illness Narrative* Gay Gandhi NP - 07/31/2023 3:00 PM EST SNEHA Cummings is a 33 y.o. female who [...] scheduled follow-up: [place] . [id number] Instructions* Patient Instructions* Gay Gandhi NP - [...] with health care providers. documented in [facility]Miss[facility]ullivanEvaluation + Plan note No data available for this section [facility] Evaluation note* Diagnosis Encounter for well adult exam with abnormal findings Screening cholesterol level Screening for lipoid disorders Thyroid disorder screening Screening for thyroid disorder documented in this encounter [facility] Work Phone: evaluation note* Diagnosis Adult general medical examination- Primary Unspecified general medical examination Menstrual abnormality Metrorrhagia documented in this encounter [facility] HealthcareEvaluation noteNo assessment information availableLima [facility] Hospital Work Phone: InstructionsNot on filedocumented in this encounter [facility] SystemProgress note No data available for this section [facility] Reason for referral (narrative)* Consultation (Routine) - Pending Review Specialty Diagnoses / Procedures Referred By Marie lynn Referred To Contact Gynecology Diagnoses Metrorrhagia Procedures PA OFFICE/OUTPATIENT NEW HIGH MDM 60 MINUTES Gay Gandhi NP [address] [place] [address] Referral ID Status Reason Start Date Expiration Date Visits Requested Visits Authorized [id number] Pending Review Specialty Services Required 08/02/2023 01/29/2024 1 1 [facility] Advance Directives No Advanced Directives Records FoundDocuments on File Type Date Recorded Patient Cable Supervisor Expl anation Advance Directives and Living Will Power of Division Sales Manager Documents on File Type Date Recorded Patient Cable Supervisor Expl anation ACP-Advance Directive ACP-Power of Division Sales Manager Summary Purpose Family History No Family History Records Found Relationship Condition Age at Onset Recorded Date/T jocelin Not Specified No pertinent family history Unknown Chief Complaint and Reason for Visit Chief Complaint Menorrhagia, Thicken ed Endometrium Additional Source Comments INFORMATION SOURCE (unrecogn ized section and content) DATE CREATED AUTHOR 12/24/2020 [facility] DATE CREATED AUTHOR AUTHOR'S ORGANIZ ATION 11/28/[address] [facility] EPIC DATE CREATED AUTHOR AUTHOR'S ORGANIZ ATION 12/26/2023 [facility] DATE CREATED AUTHOR AUTHOR'S ORGANIZ ATION 01/23/2024 [facility] DATE CREATED AUTHOR AUTHOR'S ORGANIZ ATION 02/01/2024 [facility] Care Teams (unrecognized sec tion and content) Outpatient Receptionist Relationship Specialty Start Date End Date Yassine Hitchcock MD [address] [place] [address] PCP - General Family Medicine 07/11/23 Yanelis Ty NP [address] [place] [id number] Nurse Practitioner Pulmonary Disease 07/11/23 Gay Gandhi NP [address] [place] [address] Nurse Practitioner Family Medicine 07/11/23 Outpatient Receptionist Relationship Specialty Start Date End Date Gloria Yanez [facility] [address] [place] [address] PCP - General 01/22/23 Team Status: Active Member Role Status Dates Yassine Hitchcock MD Primary Care Provider Active Team Status: Inactive Member Role Status Dates Arleen Porter MD Attending Provider Active St art: November 09, 2023 End: November 09, 2023 Yassine Hitchcock MD Primary Care Provider Active S [...] BE BASED ON THE PRIMARY CLINICAL RECORDS. [facility]. provides no warranty or guarantee of the accuracy or completeness of information in this document.
== END 2024-02-06 10:31 | disposition home or self-care (01) ==
LOC: PST 10:30
PROVIDERS: PCP Family Medicine; Visit Provider Urology
DX: Z01.818 Encounter for other preprocedural examination (principal); Z46.6 Encounter for fitting and adjustment of urinary device; Z87.820 Personal history of traumatic brain injury; G40.909 Epilepsy, unspecified, not intractable, without status epilepticus

== ENCOUNTER 2024-02-14 13:25 | Day surgery (SDC) | payer MEDICARE, MEDICAID, SELFPAY ==
--- OUTSIDE RECORDS SUMMARY | 2024-02-14 13:41 | XMS_ITS | CCD ---
Author Organization [facility] Care Team Providers Care Nurse Specialist Name Role Phone JosephAnamaria slaterh Primary Care Provider [phone] JOSEPH MALLORY Referring Unavailable MALLORY RUIZ Primary Care Unavailable Naldo GUERRERO, Yassine Redding Primary Care Provider [phone] Laparas REGULATION SUPERVISOR, Yanelis R Unavailable Hiram REGULATION SUPERVISOR, Gay Unavailable Chely WRAPPER HANDS SPRAYER-BLOOD BANK BUSINESS MANAGERGloria Primary Care Provider [phone] MD Arleen Porter Attending Provider [phone] MD Yassine Hitchcock Primary Care Provider [phone] GAY GANDHI Attending Unavailable CHARLOTTE PENOLA P Attending Unavailable HIRAM GAY Referring Unavailable CHARLOTTE PENOLA P Referring Unavailable CHARLOTTE PENOLA P Attending Unavailable CHARLOTTE PENOLA P Referring Unavailable CHARLOTTE PENOLA P Attending Unavailable ARLEEN PORTER P Referring Unavailable YASSINE HITCHCOCK Primary Care Physician [phone] DILEEP RICHTER Attending Unavailable GLORIA YANEZ Referring [...] Medication Allergies] Propensity to adverse reactions (disorder) [facility] Repository Medications Current Medications Medication Drug Class(es) [...] by mouth 2 times daily. 0 Active ukbyzyah-aaqz-KN-calcium &mins (THERAGRAN-M) 9 mg iron-400 mcg tablet (1 source) sikuhymf-abld-ZE -calcium &mins (THERAGRAN-M) 9 mg iron-400 mcg [...] # 60 cap(s), Refills(s) 0, Pharmacy: [facility] #[id number], 170, cm, 12/19/23 10:38:00 EDT, Height/Length Dosing, 67.5, kg, 12/19/23 10:38:00 EDT, Weight Dosing Start Date: 01/01/24 Stop Date: 03/01/24 Status: Ordered omega 3-ble-fgg-fish oil (Fish OiL) 300-1,000 mg capsule (1 [...] # 2 tab(s), Refills(s) 0, Pharmacy: [facility] #[id number], 170, cm, 12/19/23 10:38:00 EDT, Height/Length Dosing, [...] BRY CUMMINGS/Sex: 1990 Female Med Rec #: [id number] Physician: Alon KRAMER MD Financial #: [id number] Pt. Type: O Room/Bed: / Admit/Disch: 01/01/24 [...] Lisa Monroy Role Performed Surgeon - Primary Senior Power Scheduler - Primary Scrub - Primary Time In [...] By: Erin Rock RN 01/01/24 11:22 Normal [facility] Main OR Preoperative Recordo n 01-01-2024 Main OR Preoperative Record Main OR Preoperative Record Holding Area Document Type FTURO Summary Primary Physician: Alon KRAMER MD Finalized Date/Time: 01/01/24 10:21:47 Pt. Name: BRY CUMMINGS/Sex: 1990 Female Med Rec #: [id number] Physician: Alon KRAMER MD Financial #: [id number] Pt. Type: O Room/Bed: / Admit/Disch: 01/01/24 [...] ALEJANDRO Davila RN, Ruthann 01/01/24 10:21 Normal [facility] Operative Reporton Operative Report Operative Report Patient: [...] and left stent placement under general.. 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 ? Any problems you or family [...] tells you to take them. ? Taking kobt-ads-ubxlznt medicines, vitamins, herbs, and supplements. Tests You [...] flow th (more content not included)... 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 ? Any problems you or family [...] tells you to take them. ? Taking wujh-fjc-hdyoqnj medicines, vitamins, herbs, and supplements. Tests You [...] th (more content not included)... Normal [facility] Urology Office/Clinic Noteon 12-19-2023 Urology [...] free 1.1. Pelvic US done 10/15/23 at [facility]. HOMERO done 10/18/23 at [facility] (ordered due to hormone imbalance) - bladder [...] have a hx of traumatic brain injury. 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 1. 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 Normal [facility] Comment on above: Result Comment: Elec tronically Signed By: Alon KRAMER MD\.br\Date and Time Signed: 12/19/23 11:14 EDT\.br\Electronically Co-Signed By: Suellen Child\.br\Date and Time Co-Signed: 12/19/23 11:11 EDT HCG ( test) IA.rapi d Ql (U)Ordered By: Derek Quinn on 11-09-2023 HCG ( test) Ql (U) Negative [facility] HCG,Urineon 11-09-2023 Beta HCG ( test) Ql (U) Negative Normal [facility] Comment on above: Result Comment: PERF ORMED BY: [place] [address] PATHOLOGIST FOOD TRUCK CATERER JOSE WALDROP M.D. Performed By: #### U HCG #### [address] Fidencio 11-09-2023 L Specimen: [id number] Received: 11/09/23 Status: SOUT Req Num: [id number] Spec Type: Surgical Subm Dr: Arleen Porter MD-NOMS Tissues: A Endometrium - Curettings (EMC) Procedures: HE/2, Gross/Micro L4 Age/ Patient Sex Location Account Attending Physician Bry Cummings 33/F [place] [id number] Arleen Porter MD-NOMS SPEC NUM: [id number] RECD: 11/09/23 STATUS: BRENNAN HERNANDEZ NUM: [id number] VERNON: 11/09/23- SUBM DR: Arleen Porter MD-WESLEYS ENTERED: 11/09/[address] [facility] DR: SPEC TYPE: Surgical DEPT: S [...] A1. Clinical history: Menorrhagia, thickened endometrium Specimen: [id number] Received: 11/09/23 Status: BRENNAN Hernandez Num: [id number] Spec Type: Surgical Subm Dr: Arleen Porter MD-CASEY Tissues: A Endometrium - Curettings (EMC) Procedures: HE/2, Gross/Micro L4 Patient: Bry Cummings [id number] (Continued) Specimen: [id number] Received: 11/09/23 (Continued) Signed (signature on file) Marylin Waldron MD 11/12/232033 Specimen: [id number] Received: 11/09/23 Status: HALIDonnell Hernandez Num: [id number] Spec Type: Surgical Subm Dr: Arleen Porter MD-CASEY Tissues: A Endometrium - Curettings (EMC) Procedures: ELLIOT, Case/Mina L4 Patient: Bry Cummings [id number] (Continued) Specimen: [id number] Received: 11/09/23 (Continued) CPT Codes 92546 Specimen: [id number] Received: 11/09/23 Status: BRENNAN Hernandez Num: [id number] Spec Type: Surgical Subm Dr: Arleen Porter MD-CASEY Tissues: A Endometrium - Curettings (EMC) Procedures: HE/Mirna, Gross/Micro L4 Patient: Bry Cummings [id number] (Continued) Signed (signature on file) Marylin Waldron MD 11/12/232033 Normal [facility] US RENAL COMPLETEon 10-18-19 US [...] Interpretation and review of laboratory results Normal [facility] Preg Test, Ur Negative [facility] Comp Metabolic Profon 2020 (cont.) Normal [facility] Comment on above: Result Comment: Aver age GFR for 30-39 years old: 107 mL/min/1.73sq m Chronic Kidney Disease: <60 mL/min/1.73sq m Kidney failure: <15 mL/min/1.73sq m eGFR calculated using average adult body mass. Additional eGFR calculator available at: http://www.[employer].com/multiple_crcl_2012.htm Performed By: #### C DP, CP, LIPR, FT4, TSH #### [employer] [facility] [place] [address] Sales Training Manager: Robby Oconnor MD Albumin [Mass/Vol] 4.4 g/dL Normal 3.5-5.2 [facility] Comment on above: Performed By: #### C DP, CP, LIPR, FT4, TSH #### [address] [address] Sales Training Manager: Robby Oconnor MD Albumin/Glob Ratio 1.1 Normal 1.0-2.5 [facility] Comment on above: Performed By: #### C DP, CP, LIPR, FT4, TSH #### [address] [address] Sales Training Manager: Robby Oconnor MD Alkaline Phos 70 U/L Normal 35-104 [facility] Comment on above: Performed By: #### C DP, CP, LIPR, FT4, TSH #### [address] [address] Sales Training Manager: Robby Oconnor MD ALT [Catalytic activity/Vol] 10 U/L Normal 5-33 [facility] Comment on above: Performed By: #### C DP, CP, LIPR, FT4, TSH #### [address] [address] Sales Training Manager: Robby Oconnor MD Anion gap [Moles/Vol] 12 mmol/L Normal 9-17 [facility] Comment on above: Performed By: #### C DP, CP, LIPR, FT4, TSH #### [address] [address] Sales Training Manager: Robby Oconnor MD AST [Catalytic activity/Vol] 14 U/L Normal <32 [facility] Comment on above: Performed By: #### C DP, CP, LIPR, FT4, TSH #### [address] [address] Sales Training Manager: Robby Oconnor MD Bilirubin [Mass/Vol] 0.33 mg/dL Normal 0.3-1.2 [facility] Comment on above: Performed By: #### C DP, CP, LIPR, FT4, TSH #### [address] [address] Sales Training Manager: Robby Oconnor MD Calcium [Mass/Vol] 9.1 mg/dL Normal 8.6-10.4 [facility] Comment on above: Performed By: #### C DP, CP, LIPR, FT4, TSH #### [address] [address] Sales Training Manager: Robby Oconnor MD Chloride [Moles/Vol] 103 mmol/L Normal 98-107 [facility] Comment on above: Performed By: #### C DP, CP, LIPR, FT4, TSH #### [address] [address] Sales Training Manager: Robby Oconnor MD CO2 [Moles/Vol] 25 mmol/L Normal 20-31 [facility] Comment on above: Performed By: #### C DP, CP, LIPR, FT4, TSH #### [address] [address] Sales Training Manager: Robby Oconnor MD Creatinine [Mass/Vol] 0.54 mg/dL Normal 0.50-0.90 [facility] Comment on above: Performed By: #### C DP, CP, LIPR, FT4, TSH #### [address] [address] Sales Training Manager: Robby Oconnor MD GFR, Amer >60 Normal >60 [facility] Comment on above: Performed By: #### C DP, CP, LIPR, FT4, TSH #### [address] [address] Sales Training Manager: Robby Oconnor MD GFR,non Amer >60 Normal >60 [facility] Comment on above: Performed By: #### C DP, CP, LIPR, FT4, TSH #### [employer] [address] Sales Training Manager: Robby Oconnor MD Glucose [Mass/Vol] 76 mg/dL Normal 70-99 [facility] Comment on above: Performed By: #### C DP, CP, LIPR, FT4, TSH #### [address] [address] Sales Training Manager: Robby Oconnor MD Potassium [Moles/Vol] 4.0 mmol/L Normal 3.7-5.3 [facility] Comment on above: Performed By: #### C DP, CP, LIPR, FT4, TSH #### [address] [address] Sales Training Manager: Robby Oconnor MD Protein [Mass/Vol] 8.5 g/dL High 6.4-8.3 [facility] Comment on above: Performed By: #### C DP, CP, LIPR, FT4, TSH #### [address] [address] Sales Training Manager: Robby Oconnor MD Sodium [Moles/Vol] 140 mmol/L Normal 135-144 [facility] Comment on above: Performed By: #### C DP, CP, LIPR, FT4, TSH #### [address] [address] Sales Training Manager: Robby Oconnor MD Urea nitrogen [Mass/Vol] 15 mg/dL Normal 6-20 [facility] Comment on above: Performed By: #### C DP, CP, LIPR, FT4, TSH #### [address] [address] Sales Training Manager: Robby Oconnor MD Lipid Profileon 12-23-2020 Cholesterol [Mass/Vol] 133 mg/dL Normal <200 [facility] Comment on above: Result Comment: Cholesterol Guidelines: <200 Desirable 200-240 Borderline >240 Undesirable Performed By: #### C DP, CP, LIPR, FT4, TSH #### [address] [address] Sales Training Manager: Robby Oconnor MD Cholesterol in HDL [Mass/Vol] 52 mg/dL Normal >40 [facility] Comment on above: Result Comment: HDL Guidelines: <40 Undesirable 40-59 Borderline >59 Desirable Performed By: #### C DP, CP, LIPR, FT4, TSH #### [address] [address] Sales Training Manager: Robby Oconnor MD Cholesterol in LDL [Mass/Vol] 61 mg/dL Normal 0-130 [facility] Comment on above: Result Comment: LDL Guidelines: <100 Desirable 100-129 Near to/above Desirable 130-159 Borderline >159 Undesirable Direct (measured) LDL and calculated LDL are not interchangeable tests. Performed By: #### C DP, CP, LIPR, FT4, TSH #### [facility] [employer] [address] [place] [address] Sales Training Manager: Robby Oconnor MD Cholesterol.total/Chol esterol in HDL [Mass ratio] 2.6 {ratio} Normal <5 [facility] Comment on above: Performed By: #### C DP, CP, LIPR, FT4, TSH #### [address] [address] Sales Training Manager: Robby Oconnor MD Triglyceride [Mass/Vol] 102 mg/dL Normal <150 [facility] Comment on above: Result Comment: Triglyceride Guidelines: <150 Desirable 150-199 Borderline 200-499 High >499 Very high Based on AHA Guidelines for fasting triglyceride, March 2012. Performed By: #### C DP, CP, LIPR, FT4, TSH #### [facility] [address] [place] [address] Sales Training Manager: Robby Oconnor MD Thyroid Stim. Horm.on 2020 TSH Qn 4.99 m[IU]/L Normal 0.30-5.00 [facility] Comment on above: Performed By: #### C DP, CP, LIPR, FT4, TSH #### [employer] [address] [place], [place] [id number] Sales Training Manager: Robby Oconnor MD Thyroxine, Freeon 12-23-2020 Thyroxine, Free 0.97 ng/dL Normal 0.93-1.70 [facility] Comment on above: Performed By: #### C DP, CP, LIPR, FT4, TSH #### [employer] [address] [place], [place] [id number] Sales Training Manager: Robby Oconnor MD CBC With Auto DifferentialOr dered By: Mallory Ruiz on 12-22-2020 [employer] # 0.16 [employer] [facility] Work Phone: Absolute Immature Granulocyte <0.03 [employer] [facility] Work Phone: [employer] Lymph # 2.82 Turned On [employer] [facility] Work Phone: Absolute Eagle # 0.70 Turned On [employer] [facility] Work Phone: Basophils (Bld) [#/Vol] 0.05 10*3/uL [facility] Work Phone: Basophils/100 WBC (Bld) 1 % 0 - 2 % [employer] Phone: Differential Type NOT REPORTED [employer] Phone: Eosinophils/100 WBC (Bld) 3 % 1 - 4 % [employer] Phone: Hematocrit (Bld) [Volume fraction] 41.0 % 36.3 - 47.1 % [employer] Phone: Hemoglobin.gastrointes tinal spec 1 Ql (Stl) 13.1 g/dL 11.9 - 15.1 g/dL [employer] Phone: Immature granulocytes/100 WBC (Bld) 0 % 0 [employer] Phone: Interpretation and review of laboratory results Abnormal [employer] Phone: Lymphocytes/100 WBC (Bld) 51 % High 24 - 43 % [employer] Phone: MCH (RBC) [Entitic mass] 31.1 pg 25.2 - 33.5 pg [employer] Phone: MCHC (RBC) [Mass/Vol] 32.0 g/dL 28.4 - 34.8 g/dL [employer] Phone: MCV (RBC) [Entitic vol] 97.4 fL 82.6 - 102.9 fL [employer] Phone: Monocytes/100 WBC (Bld) 13 % High 3 - 12 % [employer] Phone: NRBC Automated 0.0 0.0 per 100 WBC [employer] Phone: Platelet distribution width (Bld) [Ratio] 13.4 % 11.8 - 14.4 % [employer] Phone: Platelet Estimate NOT REPORTED [employer] Phone: Platelet mean volume (Bld) [Entitic vol] 12.8 fL 8.1 - 13.5 fL [employer] Phone: Platelets (Bld) [#/Vol] 243 10*3/uL [employer] Phone: RBC (Bld) [#/Vol] 4.21 10*6/uL 3.95 - 5.1 1 m/uL [employer] Phone: RBC (Bld) [#/Vol] NOT REPORTED [employer] Phone: Segmented neutrophils/100 WBC (Bld) 32 % Low 36 - 65 % [employer] Phone: Segs [employer] 1.73 [employer] Work Phone: WBC (Bld) [#/Vol] 5.5 10*3/uL [facility] [employer] Phone: WBC (Bld) [#/Vol] NOT REPORTED [facility] Phone: [facility] [employer] Phone: CBC with Diffon 12-22-2020 Abs. Basophil 0.05 k/uL Normal 0.00-0.20 [facility] Comment on above: Performed By: #### C DP, CP, LIPR, FT4, TSH #### [place] [address] Sales Training Manager: Robby Oconnor MD Abs.Imm.Granulocyte <0.03 Normal 0.00-0.30 [facility] Comment on above: Performed By: #### C DP, CP, LIPR, FT4, TSH #### [place] [address] Sales Training Manager: Robby Oconnor MD Abs.Neutrophil (Seg) 1.73 k/uL Normal 1.50-8.10 [facility] Comment on above: Performed By: #### C DP, CP, LIPR, FT4, TSH #### [place] [address] Sales Training Manager: Robby Oconnor MD Basophils/100 WBC (Bld) 1 % Normal 0-2 [facility] Comment on above: Performed By: #### C DP, CP, LIPR, FT4, TSH #### [place] [address] Sales Training Manager: Robby Oconnor MD Eosinophils (Bld) [#/Vol] 0.16 10*3/uL Normal 0.00-0.44 [facility] Comment on above: Performed By: #### C DP, CP, LIPR, FT4, TSH #### [place] [address] Sales Training Manager: Robby Oconnor MD Eosinophils/100 WBC (Bld) 3 % Normal 1-4 [facility] Comment on above: Performed By: #### C DP, CP, LIPR, FT4, TSH #### [address] [address] Sales Training Manager: Robby Oconnor MD Erythrocyte distribution width (RBC) [Ratio] 13.4 % Normal 11.8-14.4 [facility] Comment on above: Performed By: #### C DP, CP, LIPR, FT4, TSH #### [place] [address] Sales Training Manager: Robby Oconnor MD Hematocrit (Bld) [Volume fraction] 41.0 % Normal 36.3-47.1 [facility] Comment on above: Performed By: #### C DP, CP, LIPR, FT4, TSH #### [place] [address] Sales Training Manager: Robby Oconnor MD Hemoglobin (Bld) [Mass/Vol] 13.1 g/dL Normal 11.9-15.1 [facility] Comment on above: Performed By: #### C DP, CP, LIPR, FT4, TSH #### [place] [address] Sales Training Manager: Robby Oconnor MD Immature granulocytes/100 WBC (Bld) 0 % Normal 0 [facility] Comment on above: Performed By: #### C DP, CP, LIPR, FT4, TSH #### [place] [address] Sales Training Manager: Robby Oconnor MD Lymphocytes (Bld) [#/Vol] 2.82 10*3/uL Normal 1.10-3.70 [facility] Comment on above: Performed By: #### C DP, CP, LIPR, FT4, TSH #### [address] [address] Sales Training Manager: Robby Oconnor MD Lymphocytes/100 WBC (Bld) 51 % High 24-43 [facility] Comment on above: Performed By: #### C DP, CP, LIPR, FT4, TSH #### [address] [address] Sales Training Manager: Robby Oconnor MD MCH (RBC) [Entitic mass] 31.1 pg Normal 25.2-33.5 [facility] Comment on above: Performed By: #### C DP, CP, LIPR, FT4, TSH #### [address] [address] Sales Training Manager: Robby Oconnor MD MCHC (RBC) [Mass/Vol] 32.0 g/dL Normal 28.4-34.8 [facility] Comment on above: Performed By: #### C DP, CP, LIPR, FT4, TSH #### [address] [address] Sales Training Manager: Robby Oconnor MD MCV (RBC) [Entitic vol] 97.4 fL Normal 82.6-102.9 [facility] Comment on above: Performed By: #### C DP, CP, LIPR, FT4, TSH #### [address] [address] Sales Training Manager: Robby Oconnor MD Monocytes (Bld) [#/Vol] 0.70 10*3/uL Normal 0.10-1.20 [facility] Comment on above: Performed By: #### C DP, CP, LIPR, FT4, TSH #### [address] [address] Sales Training Manager: Robby Oconnor MD Monocytes/100 WBC (Bld) 13 % High 3-12 [facility] Comment on above: Performed By: #### C DP, CP, LIPR, FT4, TSH #### [address] [address] Sales Training Manager: Robby Oconnor MD Neutrophil (Seg) 32 % Low 36-65 [facility] Comment on above: Performed By: #### C DP, CP, LIPR, FT4, TSH #### [address] [address] Sales Training Manager: Robby Oconnor MD NRBC Automated 0.0 per 100 WBC Normal 0.0 [facility] Comment on above: Performed By: #### C DP, CP, LIPR, FT4, TSH #### [address] [address] Sales Training Manager: Robby Oconnor MD Platelet mean volume (Bld) [Entitic vol] 12.8 fL Normal 8.1-13.5 [facility] Comment on above: Performed By: #### C DP, CP, LIPR, FT4, TSH #### [address] [address] Sales Training Manager: Robby Oconnor MD Platelets (Bld) [#/Vol] 243 10*3/uL Normal 138-453 [facility] Comment on above: Performed By: #### C DP, CP, LIPR, FT4, TSH #### [address] [address] Sales Training Manager: Robby Oconnor MD RBC (Bld) [#/Vol] 4.21 10*6/uL Normal 3.95-5.11 [facility] Comment on above: Performed By: #### C DP, CP, LIPR, FT4, TSH #### [address] [address] Sales Training Manager: Robby Oconnor MD WBC (Bld) [#/Vol] 5.5 10*3/uL Normal 3.5-11.3 [facility] Comment on above: Performed By: #### C DP, CP, LIPR, FT4, TSH #### [address] [address] Sales Training Manager: Robby Oconnor MD Auto Diff Performed NOT REPORTED Normal [facility] Comment on above: Performed By: #### C DP, CP, LIPR, FT4, TSH #### [address] [address] Sales Training Manager: Robby Oconnor MD Platelet Estimate NOT REPORTED Normal [facility] Comment on above: Performed By: #### C DP, CP, LIPR, FT4, TSH #### [address] [address] Sales Training Manager: Robby Oconnor MD RBC morphology finding Nom (Bld) NOT REPORTED Normal [facility] Comment on above: Performed By: #### C DP, CP, LIPR, FT4, TSH #### [address] [address] Sales Training Manager: Robby Oconnor MD WBC Morphology NOT REPORTED Normal [facility] Comment on above: Performed By: #### C DP, CP, LIPR, FT4, TSH #### [address] [address] Sales Training Manager: Robby Oconnor MD Comp Metabolic Profon 2020 BUN/CRE Ratio NOT REPORTED Normal - [facility] Comment on above: Performed By: #### C DP, CP, LIPR, FT4, TSH #### [address] [address] Sales Training Manager: Robby Oconnor MD Staging: NOT REPORTED Normal [facility] Comment on above: Performed By: #### C DP, CP, LIPR, FT4, TSH #### [employer] [address] [place] [address] Sales Training Manager: Robby Oconnor MD Comprehensive Metabolic Pane lOrdered By: Mallory Ruiz on 12-22-2020 Albumin [Mass/Vol] 4.4 g/dL 3.5 - 5.2 g/dL [employer] Phone: Albumin/Globulin [Mass ratio] 1.1 {ratio} [employer] Phone: ALP (Bld) [Catalytic activity/Vol] 70 U/L 35 - 104 U/L [employer] Phone: ALT [Catalytic activity/Vol] 10 U/L 5 - 33 U/L [employer] Phone: Anion gap [Moles/Vol] 12 mmol/L 9 - 17 mmol/L [employer] Phone: AST [Catalytic activity/Vol] 14 U/L <32 [employer] Phone: Bilirubin [Mass/Vol] 0.33 mg/dL 0.3 - 1 .2 mg/dL [employer] Phone: Calcium [Mass/Vol] 9.1 mg/dL 8.6 - 10. 4 mg/dL [employer] Phone: Chloride [Moles/Vol] 103 mmol/L 98 - 10 7 mmol/L [employer] Phone: CO2 [Moles/Vol] 25 mmol/L 20 - 31 mmol/L [employer] Phone: Creatinine [Mass/Vol] 0.54 mg/dL 0.50 - 0.90 mg/dL [employer] Phone: Free PSA/Total PSA [Mass fraction] 8.5 g/dL High 6.4 - 8.3 g/dL [employer] Phone: GFR >60 >60 mL/min [employer] Phone: GFR Non- >60 >60 mL/min [employer] Phone: GFR/1.73 sq M.predicted MDRD (S/P/Bld) [Vol rate/Area] [employer] Phone: Comment on above: Average GFR for 30-3 9 years old: 107 mL/min/1.73sq m Chronic Kidney Disease: <60 mL/min/1.73sq m Kidney failure: <15 mL/min/1.73sq m eGFR calculated using average adult body mass. Additional eGFR calculator available at: http://www.[employer]multiple_crcl_2012.htm GFR/1.73 sq M.predicted MDRD (S/P/Bld) [Vol rate/Area] NOT REPORTED [employer] Phone: Glucose [Mass/Vol] 76 mg/dL 70 - 99 mg/dL [employer] Phone: Interpretation and review of laboratory results Abnormal [employer] Phone: Potassium [Moles/Vol] 4.0 mmol/L 3.7 - 5.3 mmol/L [employer] Phone: Sodium [Moles/Vol] 140 mmol/L 135 - 144 mmol/L [employer] Phone: Urea nitrogen (BldV) [Mass/Vol] 15 mg/dL 6 - 20 mg/dL [employer] Phone: Urea nitrogen/Creatinine (Bld) [Mass ratio] NOT REPORTED [employer] Phone: Lipid PanelOrdered By: Mallory Ruiz on 12-22-2020 Cholesterol [Mass/Vol] 133 mg/dL <200 [employer] Phone: Comment on above: Cholesterol Guidelines: <200 Desirable 200-240 Borderline >240 Undesirable Cholesterol in HDL [Mass/Vol] 52 mg/dL >40 [employer] Phone: Comment on above: HDL Guidelines: <40 Undesirable 40-59 Borderline >59 Desirable Cholesterol in LDL [Mass/Vol] 61 mg/dL 0 - 130 mg/dL [employer] Phone: Comment on above: LDL Guidelines: <100 Desirable 100-129 Near to/above Desirable 130-159 Borderline >159 Undesirable Direct (measured) LDL and calculated LDL are not interchangeable tests. Cholesterol in VLDL [Mass/Vol] NOT REPORTED 30 mg/dL [employer] Phone: Cholesterol.total/Chol esterol in HDL [Mass ratio] 2.6 {ratio} <5 [employer] Phone: Triglyceride [Mass/Vol] 102 mg/dL <150 [employer] Phone: Comment on above: Triglyceride Guidelines: <150 Desirable 150-199 Borderline 200-499 High >499 Very high Based on AHA Guidelines for fasting triglyceride, March 2012. Lipid Profileon 12-22-2020 Cholesterol,VLDL NOT REPORTED Normal 07-24 [facility] Comment on above: Performed By: #### C DP, CP, LIPR, FT4, TSH #### [employer] [address] [place] [address] Sales Training Manager: Robby Oconnor MD No Panel InformationOrdered By: Mallory Ruiz on 12-22-2020 [employer] Phone: [employer] Phone: T4, FreeOrdered By: Mallory slater on 12-22-2020 Thyroxine, Free 0.97 ng/dL 0.93 - 1.70 ng/dL [employer] Phone: TSHOrdered By: Mallory Ruiz o n 12-22-2020 TSH Qn 4.99 m[IU]/L [employer] Phone: Vital Signs Date Time Vital Sign Value Performing Clinician Facility 12-19-2023 10:24-0400 Blood Pressure Location Alon KRAMER [facility] 12-19-2023 10:24-0400 Body temperature 96.8 [degF] Alon KRAMER [facility] 12-19-2023 10:24-0400 Diastolic blood pressure 69 mm[Hg] Alon KRAMER [facility] 12-19-2023 10:24-0400 Heart rate 62 /min Alon KRAMER [facility] 12-19-2023 10:24-0400 Respiratory rate 18 /min Alon KRAMER [facility] 12-19-2023 10:24-0400 Systolic blood pressure 110 mm[Hg] Alon KRAMER [facility] 11-09-2023 09:07-0400 Diastolic blood pressure 81 mm[Hg] MD Yassine Hitchcock Work Phone: [facility] 11-09-2023 09:07-0400 Heart rate 53 /min MD Yassine Hitchcock Work Phone: [facility] 11-09-2023 09:07-0400 Respiratory rate 16 /min MD Yassine Hitchcock Work Phone: [facility] 11-09-2023 09:07-0400 SaO2% (BldA) [Mass fraction] 100 % MD Yassine Hitchcock Work Phone: [facility] 11-09-2023 09:07-0400 Systolic blood pressure 114 mm[Hg] MD Yassine Hitchcock Work Phone: [facility] 11-09-2023 08:35-0400 Inhaled oxygen flow rate 6 L/min MD Yassine Hitchcock Work Phone: [facility] 11-09-2023 08:18-0400 Body height 170.18 cm MD Yassine Hitchcock Work Phone: [facility] 11-09-2023 08:18-0400 Body mass index (BMI) [Ratio] 23.5 kg/m2 MD Yassine Hitchcock Work Phone: [facility] 11-09-2023 08:18-0400 Body weight 68.03 kg MD Yassine Hitchcock Work Phone: [facility] 11-09-2023 06:26-0400 Body temperature 98.2 [degF] MD Yassine Hitchcock Work Phone: [facility] 07-31-2023 15:04-0500 Body height 170.2 cm Gay Warchol REGULATION SUPERVISOR Work Phone: [facility] 07-31-2023 15:04-0500 Body mass index (BMI) [Ratio] 23.27 kg/m2 Gay Warchol REGULATION SUPERVISOR Work Phone: [facility] 07-31-2023 15:04-0500 Body temperature 97.9 [degF] Gay Warchol REGULATION SUPERVISOR Work Phone: [facility] 07-31-2023 15:04-0500 Body weight 67.41 kg Gay Warchol REGULATION SUPERVISOR Work Phone: [facility] 07-31-2023 15:04-0500 Diastolic blood pressure 70 mm[Hg] Gay Warchol REGULATION SUPERVISOR Work Phone: [facility] 07-31-2023 15:04-0500 Heart rate 69 /min Gay Warchol REGULATION SUPERVISOR Work Phone: [facility] 07-31-2023 15:04-0500 SaO2% (BldA) [Mass fraction] 98 % Gay Warchol REGULATION SUPERVISOR Work Phone: [facility] 07-31-2023 15:04-0500 Systolic blood pressure 118 mm[Hg] Gay Warchol REGULATION SUPERVISOR Work Phone: [facility] Encounters Encounter Date Encounter Type Care Provider Facility Start: 02-14-2024 ambulatory Alon KRAMER Facili ty:[id number] Start: 01-24-2024 End: 01-24-2024 ambulatory Alon KRAMER Facility:CD:[id number] Start: 01-01-2024 End: 01-01-2024 ambulatory Alon KRAMER Facility:[facility] Start: 01-01-2024 End: 01-01-2024 Patient encounter procedure Alon KRAMER [facility] Start: 12-25-2023 End: 12-25-2023 ambulatory [facility] Start: 12-19-2023 End: 12-19-2023 ambulatory Alon KRAMER Facility:[facility] Start: 12-19-2023 End: 12-19-2023 Patient encounter procedure Alon KRAMER [facility] Start: 11-27-2023 End: 11-27-2023 ambulatory PENOLA P PORTER Not Available Start: 11-12-2023 ambulatory Alon KRAMER Facility :[facility] Start: 11-09-2023 End: 11-09-2023 Admission to same day surgery center MD Yassine Hitchcock Work Phone: [facility] [place] Start: 11-09-2023 End: 11-09-2023 ambulatory MD Yassine Hitchcock Work Phone: [facility] Work Phone: Start: 10-18-2023 End: 10-18-2023 ambulatory PENOLA P PORTER Not Available Start: 10-15-2023 End: 10-15-2023 ambulatory PENOLA P PORTER Not Available Start: 09-04-2023 End: 09-04-2023 ambulatory PENOLA P PORTER Not Available Start: 08-29-2023 Telephone encounter [facility] Comment on above: tue appointment Start: 07-31-2023 End: 07-31-2023 Office outpatient visit 15 minutes Gay Gandhi NP Work Phone: [facility] Comment on above: Adult general medica l examination (Primary Dx); Menstrual abnormality; Metrorrhagia Start: 07-31-2023 End: 07-31-2023 Patient encounter status Gay Gandhi REGULATION SUPERVISOR Work Phone: [facility] Work Phone: Start: 07-31-2023 End: 07-31-2023 ambulatory GAY GANDHI Not Available Start: 12-22-2020 End: 12-23-2020 ambulatory MALLORY RUIZ [facility] Start: 12-22-2020 End: 12-22-2020 Patient encounter status Mallory Ruiz WRAPPER HANDS SPRAYER - BLOOD BANK BUSINESS MANAGER Work Phone: [facility] Start: 12-22-2020 End: 12-22-2020 Subsequent hospital visit by physician Mallory Ruiz WRAPPER HANDS SPRAYER - BLOOD BANK BUSINESS MANAGER Work Phone: [place] [facility] Comment on above: Encounter for well a dult exam with abnormal findings; Screening cholesterol level; Thyroid disorder screening Start: 04-23-2019 End: 04-23-2019 Subsequent hospital visit by physician Mallory Ruiz [facility] Procedures Date Procedure Procedure Detail Performing Clinician Start: 11-09-2023 Hysteroscopy MD Yassine branham Work Phone: Start: 07-31-2023 Urine test visual color cmprsn meths Gay Gandhi REGULATION SUPERVISOR Work Phone: Start: 05-09-2022 Adult depression scr eening assessment Diana Das Start: 12-22-2020 Comprehensive metabo lic panel Mallory Ruiz WRAPPER HANDS SPRAYER - BLOOD BANK BUSINESS MANAGER Work Phone: Start: 12-22-2020 Lipid panel Mallory lynn WRAPPER HANDS SPRAYER - BLOOD BANK BUSINESS MANAGER Work Phone: Brain structure (bod y structure) Alon KRAMER Plan of Treatment Date Care Activity Detail Author Start: 12-18-2028 DTaP,Tdap and Td Vaccines (6 - Td or Tdap) DTaP,Tdap and Td Vaccines (6 - Td or Tdap) [facility] Start: 12-18-2028 DTaP/Tdap/Td vaccine (6 - Td or Tdap) DTaP/Tdap/Td vaccine (6 - Td or Tdap) [employer] Phone: Start: 12-18-2028 DTaP/Tdap/Td vaccine (6 - Td) DTaP/Tdap/Td vaccine (6 - Td) [facility] [place] Start: 07-31-2024 Medicare Annual Well ness (AWV) Medicare Annual Wellness (AWV) [facility] Start: 04-23-2024 Screening for malign ant neoplasm of cervix [facility] Start: 01-18-2024 Adult BMI Screening Adult [facility] Screen [facility] Start: 01-18-2024 Tobacco Screening Tobacco Screening [facility] Start: 12-25-2023 End: 12-25-2023 Patient encounter procedure 12/25/2023 10:30 AM EDT Office Visit [facility] [address] [place] [id number] Dileep Richter MD [address] [place] [address], [address], [address] [place] [address] [facility] Start: 12-23-2023 Influenza vaccination Influenza Vacc ine (#1) [facility] Comment on above: Postponed from 02/23 (Patient Refused) Start: 11-10-2023 [facility] Start: 11-09-2023 End: 11-09-2023 [facility] Start: 05-09-2023 Depression Screening Depression Scre ening [facility] Start: 02-23-2023 Influenza vaccination Influenza Vacc ine [facility] Start: 12-22-2021 COVID-19 Vaccine (1) COVID-19 Vaccin e (1) [employer] Phone: Comment on above: Postponed from 03/01 (Patient Refused) Start: 12-22-2021 Meningococcal B vacc ine (1 of 4 - Increased Risk Bexsero 2-dose series) Meningococcal B vaccine (1 of 4 - Increased Risk Bexsero 2-dose series) [employer] Phone: Comment on above: Postponed from 03/01 (Patient Refused) Start: 12-22-2021 Pneumococcal 0-64 ye ars Vaccine (1 of 4 - PCV13) Pneumococcal 0-64 years Vaccine (1 of 4 - PCV13) [employer] Phone: Comment on above: Postponed from 03/01 (Patient Refused) Start: 02-23-2021 Influenza vaccination Flu vacc ine (Season Ended) [facility] Phone: Start: 12-22-2020 Meningococcal (ACWY) vaccine (1 - Risk start before 7 months 4-dose series) Meningococcal (ACWY) vaccine (1 - Risk start before 7 months 4-dose series) [employer] Phone: Comment on above: Postponed from 05/01 (Patient Refused) Start: 12-18-2019 Annual Wellness Visi t (AWV) Annual Wellness Visit (AWV) [place], [place] Start: 02-23-2019 Influenza vaccination Flu vaccine (# 1) [place], [place] Start: 12-15-2018 Annual Wellness Visi t (AWV) Annual Wellness Visit (AWV) [facility] [employer] Phone: Start: 2009 Cervical cancer screen Cervical canc er screen [place], [place] Start: 2009 Screening for malign ant neoplasm of cervix Pap Smear [facility] Start: 2001 Varicella Vaccine (1 of 2 - 13+ 2-dose series) Varicella Vaccine (1 of 2 - 13+ 2-dose series) [place], [place] End: 04-24-2019 ENERGY ATTORNEY Cytology ENERGY ATTORNEY Cytology Lab Routine Once for 1 Occurrences starting 04/24/2019 until 04/24/2019 [place], [place] Comment on above: Once for 1 Occurrenc es starting 04/24/2019 until 04/24/2019 End: 04-23-2019 Human papillomavirus (HPV) DNA probe thin prep high risk Human papillomavirus (HPV) DNA probe thin prep high risk Lab Routine Once for 1 Occurrences starting 04/23/2019 until 04/23/2019 [place], [place] Comment on above: Once for 1 Occurrenc es starting 04/23/2019 until 04/23/2019 Human papillomavirus (HPV) DNA probe thin prep high risk Human papillomavirus (HPV) DNA probe thin prep high risk Lab Routine 04/23/2019 8:00 PM EDT [facility], [place] Patient Education Allie and Bobbi dukes (JUSTO) Know your Meds [facility] Work Phone: Patient referral [facility] Work Phone: Immunizations Immunization Date Immunization Notes Care Provider Fa cilidoris 12-18-2018 tetanus toxoid, redu melquiades diphtheria toxoid, and acellular pertussis vaccine, adsorbed [facility] Comment on above: Result Comment: 2023: VIS DATE: 08/18/2014 08-12-2014 tuberculin skin test ; purified protein derivative solution, intradermal [facility], [place] 02-05-2009 hepatitis A vaccine, unspecified formulation [facility] , [place] 02-05-2009 hepatitis B vaccine, unspecified formulation [place], [place] 04-19-2004 TD(adult) unspecifie d formulation; Translations: [Td(adult) unspecified formulation] [facility] 04-19-2004 Td, unspecified formulation [facility], [place] 02-01-2000 measles, mumps and rubella virus vaccine [facility] 02-07-1993 diphtheria, tetanus toxoids and acellular pertussis vaccine [place], [place] 02-07-1993 poliovirus vaccine, inactivated [facility], [place] 01-23-1990 haemophilus influenz ae type b vaccine, PRP-T conjugate [facility] 01-23-1990 measles, mumps and rubella virus vaccine [facility] 06-13-1989 diphtheria, tetanus toxoids and acellular pertussis vaccine [facility], [place] 01-06-1989 diphtheria, tetanus toxoids and acellular pertussis vaccine [place], [place] 01-06-1989 poliovirus vaccine, inactivated [facility], [place] 1988 diphtheria, tetanus toxoids and acellular pertussis vaccine [facility], [place] 1988 poliovirus vaccine, inactivated [place], [place] Payers Date Payer Category Payer Self-pay 2023 Private Health Insurance [id number] 2021 Medicaid MEDICAID [facility] M EDICAID [id number] 2021-Present [phone] [address] [place] [address] [id number] 2018 Medicaid MEDICAID [place] [facility] DEPT OF JOB xxxxxxxxxxxx 2018-Present [phone] [address] [place] [address] xxxxxxxxxxxx [id number] 2018 Medicaid [id number] 2015 Medicare MEDICARE MEDICAR E PART A AND B xxxxxxxxxx 2015-Present [phone] [place] [address] xxxxxxxxxx [id number] 2015 Medicare [id number] 2008 Medicare [id number] 1988 Unknown [id number] [id number] .175 1988 Unknown [id number] 2.16.840.1.952165.3.579.2 .1259 1988 Unknown [id number] [id number] .1259 1988 Unknown [id number] 2.16.840.1.657894.3.579.2 .1259 1988 Unknown [id number] [id number] .1259 1988 Unknown [id number] 2.16.840.1.186703.3.579.2 .1259 1988 Unknown [id number] 2.16.840.1.465834.3.579.2 .1259 1988 Unknown [id number] 2.16.840.1.176519.3.579.2 .1286 1988 Unknown [id number] 2.16.840.1.345496.3.579.2 .727 1988 Unknown [id number] [id number] .727 1988 Unknown [id number] [id number] .727 Medicaid Medicaid [id number] Unknown [id number] [id number] .531 Social History Date Type Detail Facility Start: 12-18-2018 End: 12-19-2023 Tobacco smoking status NHIS Never smoker [place] [facility] Start: 12-18-2018 End: 08-05-2020 Alcohol intake No [place] [facility] Start: 1990 Sex Assigned At Not on file M [place], [place] Start: 12-22-2020 End: 05-09-2022 Tobacco use and exposure Never used [facility] Start: 12-22-2020 Alcohol intake Current non-dr shop girl of alcohol (finding) [facility] Work Phone: Start: 12-22-2020 History SDOH Financial 5 [facility] Work Phone: Start: 12-22-2020 History SDOH Food Worry 1 [employer] Phone: Exposure to SARS-CoV -2 (event) Not sure [facility] Start: 07-31-2023 Alcohol intake Lifetime non-d hannah (finding) [facility] Start: 08-05-2020 End: 07-31-2023 History of Social function [facility] Start: 01-17-2023 Alcohol intake Ex-drinker (finding) [employer] Adolescent depressio n screening assessment 0 [employer] Start: 1990 Sex Assigned At Female F [facility] Goals Date Patient Goal Desired Activity /State Functional Status Date Assessment Result Facility 12-19-2023 Functional Status N/A [facility] Clinical Notes 07-31-2023 to 01-01-2024 Note Date [...] ureteroscopy and left stent placement under general. [facility]07-09-2024 Hospital Discharge instructions Patient Education 01/01/2024 11:19:51 [...] Up Care 12/21/2023 09:34:04 With:Alon KRAMER Address: [address] [place] [address] [place] [id number] Business (1) When: Unknown Comments:Office will call to schedule follow up [facility]07-09-2024 NotePatient Education Urology Intravenous Pyelogram An intravenous [...] include vitamins, herbs, eye drops, creams, and veht-ivc-oarjmta medicines. ? Any problems you or family [...] away in a short time. ? A arcade game technician will take X-rays. To make the X-rays clearer, the arcade game technician: ? May press on your belly [...] Follow these instructions at home: ? Take unot-gfl-xtqntom and prescription medicines only as told by [...] provider. Document Revised: 02/22/2022 Document Reviewed: 08/28/2019 [employer] Patient Education ? 2022 Viv[employer].[facility] 01-01-2024 NoteProgress Note-Physician Patient: BRY CUMMINGS Age: [...] of traumatic brain injury / SNOMED CT 0750017544 / Confirmed Intracranial shunt / SNOMED CT 9940135900 / Confirmed Memory deficit / SNOMED CT 4059348864 / Confirmed Migraine without aura and without status migrainosus, not intractable / SNOMED CT 6920885053 / Confirmed Partial symptomatic epilepsy with complex partial seizures, not intractable, without status epilepticus / SNOMED CT 760901756 / Confirmed Post-traumatic headache, unspecified, not intractable / SNOMED CT 90018912 / Confirmed S/P BOOKKEEPING TEACHER shunt / SNOMED CT 0880231291 / Confirmed Seizures / SNOMED CT 619244572 / Confirmed Metrorrhagia / SNOMED CT 820918754 / Confirmed Hormone imbalance / SNOMED CT 006823852 / Confirmed Thickened endometrium / SNOMED CT 2645819570 / Confirmed Elevated dehydroepiandrosterone sulfate level / SNOMED CT 736386830 / Confirmed Histories Past Medical History: No active or resolved past medical history items have been selected or recorded. Family History: No family history items have been selected or recorded. Procedure history: Brain ([id number]). Social History Social & Psychosocial Habits Tobacco [...] left ureteroscopy and left stent placement under general.[facility]Result Comment: Electronically Signed By: TAVON GUERRERO, Alon Meng.mitch\Date and Time Signed: 01/01/24 11:30 [id number] Note Patient Education Custom Cystoscopy ? Voiding [...] if you have a fever over 100 degrees.[facility] 12-19-2023 Hospital Discharge instructions Patient Education 12/19/2023 [...] including vitamins, herbs, eye drops, creams, and vgyr-uok-guctcfr medicines. Any problems you or family members [...] provider tells you to take them. Taking agpr-qux-aecgmku medicines, vitamins, herbs, and supplements. Tests You [...] Follow these instructions at home: Medicines Take okzc-ehn-nwgthzp and prescription medicines only as told by [...] provider. Document Revised: 02/22/2022 Document Reviewed: 01/21/2021 [employer] Patient Education 2022 Vivaty. Follow Up Care 11/13/2023 12:45:34 With:TAVON GUERRERO, Alon Haq, URL Address: [facility] [address], [place] [address]- When: Unknown [facility] 06-26-2024 NoteUrology Cystoscopy Cystoscopy is a procedure [...] including vitamins, herbs, eye drops, creams, and noua-lji-ykajyor medicines. ? Any problems you or family [...] tells you to take them. ? Taking vgsr-lpr-zsyumjq medicines, vitamins, herbs, and supplements. Tests You [...] these instructions at home: Medicines ? Take ngrr-rvl-vnviytd and prescription medicines only as told by [...] or the department th (more content not included)...[facility] 08-29-2023 Miscellaneous Notes* Telephone Encounter - Diana Das - 08/29/2023 10:16 AM EST Patient mother called to reschedule appointment for a SUNDAY patient mother mention that is the days her and her daughter have off. Patient is reschedule 12/25/2023 Dr. Richter 10:30am [facility] Tele[facility] encounter Note* Telephone Encounter - Diana Das - 08/29/2023 10:16 AM EST Patient mother called to reschedule appointment for a SUNDAY patient mother mention that is the days her and her daughter have off. Patient is reschedule 12/25/2023 Dr. Richter 10:30am [facility]02-06-2024 History of Present illness Narrative* Gay [...] scheduled follow-up: [place] . [id number] Instructions* Patient Instructions* Gay Gandhi NP - [...] with health care providers. documented in [facility] + Plan note No data available for this section [facility] Evaluation note* Diagnosis Encounter for well adult exam with abnormal findings Screening cholesterol level Screening for lipoid disorders Thyroid disorder screening Screening for thyroid disorder documented in this encounter [facility] Work Phone: evaluation note* Diagnosis Adult general medical examination- Primary Unspecified general medical examination Menstrual abnormality Metrorrhagia documented in this encounter [facility] HealthcareEvaluation noteNo assessment information availableH[facility] Work Phone: InstructionsNot on filedocumented in this encounter [facility] No data available for this section [facility] Reason for referral (narrative)* Consultation (Routine) - Pending Review Specialty Diagnoses / Procedures Referred By Marie lynn Referred To Contact Gynecology Diagnoses Metrorrhagia Procedures MA OFFICE/OUTPATIENT NEW HIGH MDM 60 MINUTES Gay Gandhi NP [address] [place] [address] Referral ID Status Reason Start Date Expiration Date Visits Requested Visits Authorized [id number] Pending Review Specialty Services Required 08/02/2023 01/29/2024 1 1 [facility] Advance Directives No Advanced Directives Records FoundDocuments on File Type Date Recorded Patient Drafting Instructor Expl anation Advance Directives and Living Will Power of Fence Installer Foreman Documents on File Type Date Recorded Patient Drafting Instructor Expl anation ACP-Advance Directive ACP-Power of Fence Installer Foreman Summary Purpose Family History No Family History Records Found Relationship Condition Age at Onset Recorded Date/T jocelin Not Specified No pertinent family history Unknown Chief Complaint and Reason for Visit Chief Complaint Menorrhagia, Thicken ed Endometrium Additional Source Comments INFORMATION SOURCE (unrecogn ized section and content) DATE CREATED AUTHOR 12/24/2020 [facility] DATE CREATED AUTHOR AUTHOR'S ORGANIZ ATION 11/28/2023 [facility] EPIC DATE CREATED AUTHOR AUTHOR'S ORGANIZ ATION 12/26/2023 [facility] DATE CREATED AUTHOR AUTHOR'S ORGANIZ ATION 01/23/2024 [facility] DATE CREATED AUTHOR AUTHOR'S ORGANIZ ATION 02/01/2024 [facility] Care Teams (unrecognized sec tion and content) Nurse Specialist Relationship Specialty Start Date End Date Yassine Hitchcock MD [address] [place] [address] PCP - General Family Medicine 07/11/23 Yanelis Ty NP [address] [place] [id number] Nurse Practitioner Pulmonary Disease 07/11/23 Gay Gandhi NP [address] [place] [address] Nurse Practitioner Family Medicine 07/11/23 Nurse Specialist Relationship Specialty Start Date End Date Gloria Yanez VALERY-PEDRO [facility] [address] [place] [address] PCP - General 01/22/23 Team Status: Active [...] BE BASED ON THE PRIMARY CLINICAL RECORDS. [facility] [employer] [facility]. provides no warranty or guarantee of the accuracy or completeness of information in this document.
[2024-02-14 13:54] VITALS: BP 109/70; PULSE 58; TEMP 36.3; O2SAT 97
[2024-02-14] MEDS: LIDOCAINE 2% JELLY 10 ML UR (15:25)
--- NOTE | 2024-02-14 15:31 | P.URON_ITS ---
Urology Surgery Operative Note Operative Note Procedure Date: 02/14/24 Time Out Performed: yes Pre-op Diagnosis: Status post transurethral incision of left ureterocele and stent placement Post-op Diagnosis: same as pre-op Procedures performed: 1. Cystoscopy. 2. Left stent removal. Anesthesia: local Primary Surgeon: Alon Kramer Complications: None Estimated blood loss (mL): 0 Findings: Nonencrusted stent Specimens: None Drains: None Indications for Procedures: This lady had a large left ureterocele incised and she was stented a few weeks a go. She now presents for cystoscopy and left stent removal. She has signed an informed consent after risks were explained Detailed description of Procedure: The patient was kept on a gurney bed and brought into the Endo suite. She was in the supine position with her legs frog-legged. Timeout was done by all parties in the room. We all agreed upon the patient's identification and the planned procedures for this patient. Genitalia were sterilely prepped and draped in the usual fashion. 2% lidocaine gel was passed per urethra. I then passed a flexible cystoscope per urethra and into the bladder. I then passed a flexible grasping forceps through the scope and grasped the end of the nonencrusted stent. The scope and stent were then removed. She was then discharged to home.
[2024-02-14 15:46] VITALS: BP 111/65; BP 118/70; PULSE 55; PULSE 59; O2SAT 100
== END 2024-02-14 15:42 | disposition home or self-care (01) ==
PROVIDERS: PCP Family Medicine; Visit Provider Urology
PROC: (CPT 52310; principal; 2024-02-14 13:15)
DX: Z46.6 Encounter for fitting and adjustment of urinary device (principal); Z87.820 Personal history of traumatic brain injury; G40.909 Epilepsy, unspecified, not intractable, without status epilepticus
CPT/HCPCS: 52310